=== PATIENT | female | born 1970 | race Two or more races ===

== ENCOUNTER → 2019-03-16 | Outpatient (CLI) | payer OTHER ==
--- NOTE | 2019-03-16 15:37 | REP ---
Lumbar spine series: Six views. History: Low back pain. Findings: Lumbar vertebral body heights are preserved. Alignment is normal. There is some straightening of the lumbar lordosis. There is degenerative narrowing at L5-S1 and to a lesser extent L4-5 disc spaces consistent with early degenerative disc disease. There is no evidence of spondylolysis or spondylolisthesis. Psoas margins are symmetric. There is a IUD noted in place in the pelvis. Impression: Mild degenerative disc disease L4-5 and L5-S1. Straightening. Otherwise negative. No acute bony abnormalities seen. IUD noted in place in the pelvis. Electronically Signed by Bal Chow MD 03/16/2019 04:44 P
== END ==
LOC: M LRY 14:31
PROVIDERS: ATTEND Nurse Practitioner Family
DX: M51.36 Other intervertebral disc degeneration, lumbar region (principal); M51.37 Other intervertebral disc degeneration, lumbosacral region
CPT/HCPCS: 72110; 81002; 96372; G0463; J1885

== ENCOUNTER → 2020-06-05 | Outpatient (CLI) | payer SELFPAY | LOC: M LABSMTC 12:32 | PROVIDERS: ATTEND Pediatrics | DX: Z20.828 Contact with and (suspected) exposure to other viral communicable diseases (principal) ==

== ENCOUNTER → 2020-06-19 | Outpatient (REF) ==
[2020-06-20 13:01] LABS: INR 0.94; PROTHROMBIN TIME 12.8 SECONDS (12.5-14.3)
[2020-06-20 13:02] LABS: PARTIAL THROMBOPLASTIN TIME 27.3 SECONDS (24.2-38.5)
== END ==
LOC: M LAB REF 12:32
PROVIDERS: ATTEND Podiatrist
DX: Z79.01 Long term (current) use of anticoagulants (principal)

== ENCOUNTER 2020-08-15 09:32 | Day surgery (SDC) | payer OTHER ==
[~2020-08-15] VITALS: Ht 170.2 cm; Wt 75.7 kg
[~2020-08-15 09:32] MED LIST: DULO1CAP5; LISI20TA35; NS 1,000 ML IV ONE; OMEP-221; PROM25TA12; TRAZ-257
--- OUTSIDE RECORDS SUMMARY | 2020-08-15 09:39 | CCD ---
Author Organization Unknown Address [address] [place] [address] Phone [phone] Care Team Providers Care Associate Software Engineer Name Role Phone [facility] 3 [phone] Allergies Code Code System Name Reaction Severity Status Onset NKDA Notes: unremarkable Medications Name Status Start Date Stop Date amlodipine 5 mg tablet Completed 0 bisacodyl 5 mg tablet,delayed release Completed 04/09/2020 Bismatrol 262 mg/15 mL oral suspension Completed 04/09/2020 celecoxib 100 mg capsule Active Not aishwarya ilable docusate sodium 100 mg capsule Active N ot available doxycycline hyclate 100 mg tablet Completed 04/09/2020 duloxetine 20 mg capsule,delayed release twice a day Completed 06/28/2020 duloxetine 30 mg capsule,delayed release Active Not available Elidel 1 % topical cream Completed 020 hydrocortisone 1 % topical cream Completed 04/09/2020 hydroquinone 4 % topical cream Completed 0 04/09/2020 lisinopril 20 mg-hydrochlorothiazide 12.5 mg tablet Active Not available Nicoderm CQ 14 mg/24 hr daily transdermal patch Completed 06/28/2020 Nicoderm CQ 21 mg/24 hr daily transdermal patch Active Not available nicotine 7 mg/24 hr daily transdermal patch Completed 06/28/2020 oxycodone-acetaminophen 5 mg-325 mg tablet Active Not available pantoprazole 40 mg tablet,delayed release Active Not available polyethylene glycol 3350 17 gram/dose oral powder Completed 04/09/2020 promethazine 25 mg tablet Active Not av ailable topiramate 50 mg tablet Active Not avai lable trazodone 100 mg tablet Completed 06/28/20 20 trazodone 50 mg tablet twice a day Active Not available Zanaflex 4 mg tablet Take 1 tablet 3 times a day by oral route as needed. Active Not available Problems None recorded. Procedures Date Name Performed by 06/21/2020 Foot/toes Surgery Procedure Notes: bunyon removal Information not available Extraction of [place] Tooth Information n ot available Section Information not avai lable Notes: Abdominal Plasty (2007) Results Lab Results None recorded. Past Encounters 06/28/2020 Lumbar Radiculopathy; Degeneration of Lumbar Intervertebral Disc; Degeneration of Lumbosacral Intervertebral Disc; Displacement of Lumbar Intervertebral Disc without Myelopathy; Intervertebral Disc Disorder; Spondylosis without Myelopathy; Lumbosacral Spondylosis without Myelopathy Julia Jim NP: [id number] [address], [facility] [place] [address], Ph. 06/11/2020 Lumbosacral Spondylosis without Myelopathy; Spondylosis without Myelopathy; Degeneration of Lumbar Intervertebral Disc; Degeneration of Lumbosacral Intervertebral Disc; Displacement of Lumbar Intervertebral Disc without Myelopathy; Intervertebral Disc Disorder; Lumbar Radiculopathy Abad Infante MD: [id number] [address], [place] [address], Ph. 05/23/2020 Lumbar Radiculopathy; Degeneration of Lumbar Intervertebral Disc; Degeneration of Lumbosacral Intervertebral Disc; Displacement of Lumbar Intervertebral Disc without Myelopathy; Intervertebral Disc Disorder; Spondylosis without Myelopathy; Lumbosacral Spondylosis without Myelopathy Abad Infante MD: [id number] [address], Ph. 05/09/2020 Lumbar Radiculopathy; Degeneration of Lumbar Intervertebral Disc; Degeneration of Lumbosacral Intervertebral Disc; Displacement of Lumbar Intervertebral Disc without Myelopathy; Intervertebral Disc Disorder; Spondylosis without Myelopathy; Lumbosacral Spondylosis without Myelopathy Abad Infante MD: [id number] [address], [facility] [place] [address], Ph. 04/26/2020 Lumbar Radiculopathy; Degeneration of Lumbar Intervertebral Disc; Degeneration of Lumbosacral Intervertebral Disc; Displacement of Lumbar Intervertebral Disc without Myelopathy; Intervertebral Disc Disorder; Spondylosis without Myelopathy; Lumbosacral Spondylosis without Myelopathy Abad Infante MD: [id number] [address], Ph. 04/18/2020 Lumbar Radiculopathy; Degeneration of Lumbar Intervertebral Disc; Degeneration of Lumbosacral Intervertebral Disc; Displacement of Lumbar Intervertebral Disc without Myelopathy; Intervertebral Disc Disorder; Spondylosis without Myelopathy; Lumbosacral Spondylosis without Myelopathy Abad Infante MD: [id number] [facility] [address], [place] [address], Ph. 04/09/2020 Lumbar Radiculopathy; Degeneration of Lumbar Intervertebral Disc; Degeneration of Lumbosacral Intervertebral Disc; Displacement of Lumbar Intervertebral Disc without Myelopathy; Intervertebral Disc Disorder; Spondylosis without Myelopathy; Lumbosacral Spondylosis without Myelopathy Abad Infante MD: [id number] [facility] [address], [facility] [place] [address], Ph. Social History Tobacco Smoking Status Former Smoker (07/23 PPD) Notes: last u sed Feb 2020 Vaccine List None recorded. Plan of Care Reminders Provider Appointments None recorded. Lab None recorded. Referral None recorded. Procedures None recorded. Surgeries None recorded. Imaging None recorded. Vitals 06/28/2020 09:30AM Telehealth Height 5 ft 7 in 04/09/2020 04:30PM NEW PATIENT Height Weight BMI Blood Pressure 5 ft 7 in 167 lbs 26.2 kg/m2 138/95 mm[Hg]
--- OUTSIDE RECORDS SUMMARY | 2020-08-15 09:39 | CCD ---
Continuity of Care Document (CCD) Created on: 07/05/2020 Serene Elias External Reference #: [id number] : [id number] Sex: Female Author Author Serene WOLFE DPM Organization Unknown Address [address] [place] [address] Phone [phone] Care Team Providers Care Access Rep Name Role Phone Usa Tyler Kaufman winnie AUTM Unavailable Problems Active Problems Provider Date Essential hypertension Zaid Juarez MD Onset: 02/23/2020 Social History Type Date Description Comments Sex Unknown ETOH Use Currently consumes alcohol Recreational Drug Use Denies Drug Use Tobacco Use Start: Unknown End: Unknown Patient is a former smoker Smoking Status Reviewed: 06/07/20 Patient is a former smoker Allergies, Adverse Reactions, Alerts Description No Known Drug Allergies Medications Active Medications SIG Qnty Indications Ordering Provide r Date Promethazine HCL 25mg Tablets take 1 tablet by mouth every 8 hours as needed for nausea and vomitting 20tabs Marty Wolfe DPM 06/12/2020 Colace 100mg Capsules take 1 tablet by mouth 2 times a day as needed for constipation 30caps Maureen Wolfe DPM 06/12/2020 Percocet 5-325mg Tablets take 1-2 tablets by mouth every 4-6 hours as needed for pain. do not drive, do not take before procedure. take with food. 30tabs Marty Wolfe DPM 05/21 Crutches Please dispense one pair of crutches and crutch training as necessary. Marty Wolfe DPM 06/12/[address] see preprocedure instructions 4tabs Zaid Juarez MD 03/02/2020 Mirena (52 MG) 20mcg/24HR IUD after insert remove after 5 yr Unknown Nicotine Transdermal System Step 3 7mg/24HR Patches 24HR apply patch and change daily Unknown Celebrex 100mg Capsules 1 cap by mouth daily as needed Unknown Duloxetine HCL 20mg Caps DR Part 1 by mouth every day Unknown Trazodone HCL 50mg Tablets 2 tabs by mouth daily at bedtime as needed Unknown Lisinopril 10mg Tablets 1 by mouth every day Unknown History Medications Miralax 17GM/Scoop Powder see preprocedure instructions. 238gm Zaid Juarez MD 03/02/2020 - Immunizations Description No Information Available Vital Signs Date Vital Result Comment 03/02/2020 1:26pm BP Systolic 124 mmHg BP Diastolic 85 mmHg Heart Rate 91 /min Body Temperature 98.1 F Respiratory Rate 18 /min O2 % BldC Oximetry 97 % Weight 181.00 lb Weight 82.102 kg Results Description No Information Available Procedures Date Code Description Status 07/05/2020 36433 No Chargeable Service Completed Medical Devices Description No Information Available Encounters Description No Information Available Assessments Date Code Description Provider 07/05/2020 Z47.89 Encounter for other orthopedic a ftercare Marty Wolfe, [facility] 06/07/2020 M21.612 Bunion of left foot Marty Wolfe, [facility] 06/07/2020 M19.072 Primary osteoarthritis, left ank le and foot Marty Wolfe, [facility] 03/02/2020 Z12.11 Encounter for screening for rachael gnant neoplasm of colon Zaid Juarez MD 03/02/2020 K58.2 Mixed irritable bowel syndrome L jimmy Juarez MD Plan of Treatment No Information Available Functional Status Description No Information Available Mental Status Description No Information Available Referrals Description No Information Available
--- OUTSIDE RECORDS SUMMARY | 2020-08-15 09:39 | CCD ---
Continuity of Care Document (CCD) Created on: 08/14/2020 Serene Elias External Reference #: [id number] : [id number] Sex: Female Author Author Serene PALAFOX M.D. Organization Unknown Address [address] [place] [address] Phone [phone] Care Team Providers Care Maintenance Team Member Name Role Phone Jessica BLACKMON Unavailable Problems Active Problems Provider Date Chronic low back pain Bere Lee M.D. Onset: 03/14/2020 Hand pain Bere Lee M.D. Onset: 02/28/2020 Numbness of hand Bere Lee M.D. Onset: 02/28/2020 Carpal tunnel syndrome Bere Lee M.D. Onset: 02/28/2020 Lumbosacral radiculopathy Bere Lee M.D. Onset: 020 Numbness of lower limb Bere Lee M.D. Onset: 03/14/2020 Chronic tension-type headache Payton Palafox M.D. Onset: Migraine without aura, not refractory Payton Palafox M.D. On set: 06/13/2020 Disorders of initiating and maintaining sleep Radha Ojeda Onset: 06/13/2020 Periodic limb movement disorder Payton Palafox M.D. Onset: 0 08/14/2020 Obstructive sleep apnea syndrome Payton Palafox M.D. Onset: 08/14/2020 Malaise and fatigue Payton Palafox M.D. Onset: 08/14/2020 Hypersomnia Payton Palafox M.D. Onset: 08/14/2020 Social History Type Date Description Comments Sex Unknown Tobacco Use Start: Unknown Patient has never smoked Allergies, Adverse Reactions, Alerts Description No Known Drug Allergies Medications Active Medications SIG Qnty Indications Ordering Provide r Date Topiramate 50mg Tablets half a tab po qhs for 1 week, then 1 po qhs for 1 week, & then 2 po qhs. 60tabs Payton Palafox M.D. 06/13/2020 Tylenol 8 Hour 650mg Tablets ER Bere Lee M.D. 03/14/2020 Tylenol 8 Hour 650mg Tablets ER Bere Lee M.D. 02/28/2020 Immunizations Description No Information Available Vital Signs Date Vital Result Comment 03/15/2020 9:14am BP Systolic 120 mmHg BP Diastolic 80 mmHg Heart Rate 72 /min Height 67 inches 5'7" Weight 169.00 lb BMI (Body Mass Index) 26.5 kg/m2 [place] Body Weight 135 lb Results Description No Information Available Procedures Date Code Description Status 08/07/2020 15790 EEG Recording Awake & Asleep Com pleted 08/07/2020 71147 EEG Recording Awake & Asleep Com pleted 06/29/2020 80988 MRI Brain W/O Contrast Completed 06/29/2020 37736 MRI Brain W/O Contrast Completed 03/15/2020 28186 Nerve Conduction 13+ Studies Com pleted 03/15/2020 28765 Needle Electromyography Complete , Five Or More Muscles Studied Completed 03/15/2020 96485 Needle Electromyography Complete , Five Or More Muscles Studied Completed 02/29/2020 46787 Nerve Conduction 13+ Studies Com pleted 02/29/2020 37559 Needle Electromyogra phy Non Extremity Done With Nerve Conduction Completed 02/29/2020 24304 Needle Electromyography Complete , Five Or More Muscles Studied Completed 02/29/2020 83102 Needle Electromyography Complete , Five Or More Muscles Studied Completed Medical Devices Description No Information Available Encounters Type Date Location Provider Dx Diagnosis Office Visit 08/14/2020 11:30a [place] G44.229 Chronic tension-type headache, not intractable G43.009 Migraine w/o aura, not intra ctable, w/o status migrainosus F51.01 Primary insomnia G47.61 Periodic limb movement disor crystal G47.33 Obstructive sleep apnea (meseret lt) (pediatric) R53.83 Other fatigue G47.14 Hypersomnia due to medical c ondition Office Visit 06/13/2020 8:00a Main office - Radha Palafox G44.229 Chronic tension-type headache, not intractable G43.009 Migraine w/o aura, not intra ctable, w/o status migrainosus F51.01 Primary insomnia M54.5 Low back pain Assessments Date Code Description Provider 08/14/2020 G44.229 Chronic tension-type headache, n ot intractable Payton Palafox M.D. 08/14/2020 G43.009 Migraine without aur a, not intractable, without status migrainosus Payton Palafox M.D. 08/14/2020 F51.01 Primary insomnia Jessica Ojeda 08/14/2020 G47.61 Periodic limb movement disorder Payton Palafox M.D. 08/14/2020 G47.33 Obstructive sleep apnea (adult) (pediatric) Payton Palafox M.D. 08/14/2020 R53.83 Other fatigue Payton Palafox M.D. 08/14/2020 G47.14 Hypersomnia due to medical condi tion Payton Palafox M.D. 08/07/2020 R25.8 Other abnormal involuntary movem ents Yanni Jesus, RadhaDRosalie 08/07/2020 R25.8 Other abnormal involuntary movem ents EEG 06/29/2020 G44.229 Chronic tension-type headache, n ot intractable Bere Jesus, Truman.DRosalie 06/29/2020 G44.229 Chronic tension-type headache, n ot intractable MRI 06/29/2020 G43.009 Migraine without aur a, not intractable, without status migrainosus Bere Jesus, M.DRosalie 06/29/2020 G43.009 Migraine without aur a, not intractable, without status migrainosus MRI 06/13/2020 G44.229 Chronic tension-type headache, n ot intractable Radha OjedaDRosalie 06/13/2020 G43.009 Migraine without aur a, not intractable, without status migrainosus Payton Palafox M.D. 06/13/2020 F51.01 Primary insomnia Jessica Ojeda 06/13/2020 M54.5 Low back pain Payton Palafox M.D. 03/15/2020 M54.5 Low back pain Bere Jesus, RadhaD Rosalie 03/15/2020 M54.16 Radiculopathy, lumbar region Abd ul Jesus, M.D. 03/15/2020 R20.2 Paresthesia of skin Bere Jesus, M.D. 03/15/2020 G60.9 Hereditary and idiopathic neurop athy, unspecified Bere Jesus, M.D. 02/29/2020 G56.03 Carpal tunnel syndrome, bilatera l upper limbs Bere Jesus, M.D. 02/29/2020 M54.2 Cervicalgia Bere Jesus, M.D . 02/29/2020 R20.2 Paresthesia of skin Bere Jesus, M.D. 02/29/2020 G56.02 Carpal tunnel syndrome, left upp er limb Bere Jesus, M.DRosalie Plan of Treatment No Information Available Functional Status Description No Information Available Mental Status Description No Information Available Referrals Refer to Reason for Referral Status Appt Date Payton Palafox M.D. Created [facility] [address] [place] [address] [phone] Payton Palafox M.D. Created [facility] [address] [place] [address] [phone] Bere Lee M.D. Created [facility] [address] [place] [address] [phone] Bere Lee M.D. Created [facility] [address] [place] [address] [phone]
--- OUTSIDE RECORDS SUMMARY | 2020-08-15 09:39 | CCD | Continuity of Care Document ---
Author Author Serene PALAFOX M.D. Organization Unknown Address [address] [place] [address] Phone [phone] Care Team Providers Care Table Hand Name Role Phone Morteza Morris AUTTruman Unavailable Jessica Bustos AUTTruman Unavailable Radha Morales M.D. AUTM [phone] Problems Active Problems Provider Date Chronic low [...] and maintaining sleep Radha Ojeda Onset: 06/13/2020 Social History Type Date Description Comments Sex [...] lb BMI (Body Mass Index) 26.5 kg/m2 [place] Body Weight 135 lb Results Description No Information Available Procedures Date Code Description Status 03/15/2020 93209 Nerve Conduction 13+ Studies Com pleted 03/15/2020 56035 Needle Electromyography Complete , Five Or More Muscles Studied Completed 03/15/2020 87581 Needle Electromyography Complete , Five Or More Muscles Studied Completed 02/29/2020 44945 Nerve Conduction 13+ Studies Com pleted 02/29/2020 98281 Needle Electromyogra phy Non Extremity Done With Nerve Conduction Completed 02/29/202016515 Needle Electromyography Complete , Five Or More Muscles Studied Completed 02/29/202076256 Needle Electromyography Complete , Five Or More Muscles Studied Completed Medical Devices Description No Information Available Encounters Type Date Location Provider Dx Diagnosis Office Visit 06/13/2020 8:00a Main office - [place] Radha Ojeda G44.229 Chronic tension-type headache, not intractable G43.009 Migraine w/o aura, not intra ctable, w/o status migrainosus F51.01 Primary insomnia M54.5 Low back pain Assessments Date Code Description Provider 06/13/2020 G44.229 Chronic tension-type headache, n ot intractable Payton Palafox M.D. 06/13/2020 G43.009 Migraine without aur a, not intractable, without status migrainosus Payton Palafox M.D. 06/13/2020 F51.01 Primary insomnia Jessica Ojeda 06/13/2020 M54.5 Low back pain Payton Palafox M.D. 03/15/2020 M54.5 Low back pain Bere JesusJessica morrow 03/15/2020 M54.16 Radiculopathy, lumbar region Abd ul Andrea Lee 03/15/2020 R20.2 Paresthesia of skin Bere Andrea Lee 03/15/2020 G60.9 Hereditary and idiopathic neurop athy, unspecified Bere Lee M.D. 02/29/2020 G56.03 Carpal tunnel syndrome, bilatera l upper limbs Bere Lee M.D. 02/29/2020 M54.2 Cervicalgia Jessica Jackson 02/29/2020 R20.2 Paresthesia of skin Bere Lee M.D. 02/29/2020 G56.02 Carpal tunnel syndrome, left upp er limb Bere Lee M.D. Plan of Treatment Future Appointment(s):* 08/14/2020 11:30 am - Payton Palafox M.D. at [facility] * 08/07/2020 2:30 pm - EEG at [facility] Functional Status Description No Information Available Mental Status Description No Information Available Referrals Refer to Dr Reason for Referral Status Appt Date Payton Palafox M.D. Created [facility] [address] [place] [address] [phone] Bere Lee M.D. Created [facility] [address] [place] [address] [phone] Bere Lee M.D. Created [facility] [address] [place] [address] [phone]
--- OUTSIDE RECORDS SUMMARY | 2020-08-15 09:39 | CCD ---
Author Organization Unknown Address [address] [place] [address] Phone [phone] Care Team Providers Care Power Saw Operator Name Role Phone [facility] 3 [phone] Allergies Code Code System Name Reaction Severity Status Onset NKDA Notes: unremarkable Medications Name Status Start Date Stop Date amlodipine 5 mg tablet Completed 0 bisacodyl 5 mg tablet,delayed release Completed 04/09/2020 Bismatrol 262 mg/15 mL oral suspension Completed 04/09/2020 celecoxib 100 mg capsule Active Not aishwarya ilable doxycycline hyclate 100 mg tablet Completed 04/09/2020 duloxetine 20 mg capsule,delayed release twice a day Active Not available duloxetine 30 mg capsule,delayed release Active Not available Elidel 1 % topical cream Completed 020 hydrocortisone 1 % topical cream Completed 04/09/2020 hydroquinone 4 % topical cream Completed 0 04/09/2020 lisinopril 20 mg-hydrochlorothiazide 12.5 mg tablet Active Not available Nicoderm CQ 14 mg/24 hr daily transdermal patch Completed 04/09/2020 Nicoderm CQ 21 mg/24 hr daily transdermal patch Completed 04/09/2020 nicotine 7 mg/24 hr daily transdermal patch Completed 04/09/2020 pantoprazole 40 mg tablet,delayed release Active Not available polyethylene glycol 3350 17 gram/dose oral powder Completed 04/09/2020 trazodone 100 mg tablet Active Not avai lable trazodone 50 mg tablet twice a day Active Not available Zanaflex 4 mg tablet Take 1 tablet 3 times a day by oral route as needed. Active Not available Problems None recorded. Procedures Date Name Performed by Extraction of [place] Tooth Information n ot available Section Information not avai veena Notes: Abdominal Plasty (2007) Results Lab Results None recorded. Past Encounters 06/11/2020 Lumbosacral Spondylosis without Myelopathy; Spondylosis without Myelopathy; Degeneration of Lumbar Intervertebral Disc; Degeneration of Lumbosacral Intervertebral Disc; Displacement of Lumbar Intervertebral Disc without Myelopathy; Intervertebral Disc Disorder; Lumbar Radiculopathy Abad Infante MD: [id number] [address], Ph. 05/23/2020 Lumbar Radiculopathy; Degeneration of Lumbar Intervertebral Disc; Degeneration of Lumbosacral Intervertebral Disc; Displacement of Lumbar Intervertebral Disc without Myelopathy; Intervertebral Disc Disorder; Spondylosis without Myelopathy; Lumbosacral Spondylosis without Myelopathy Abad Infante MD: [id number] [address], Ph. 05/09/2020 Lumbar Radiculopathy; Degeneration of Lumbar Intervertebral Disc; Degeneration of Lumbosacral Intervertebral Disc; Displacement of Lumbar Intervertebral Disc without Myelopathy; Intervertebral Disc Disorder; Spondylosis without Myelopathy; Lumbosacral Spondylosis without Myelopathy Abad Infante MD: [id number] [address], Ph. 04/26/2020 Lumbar Radiculopathy; Degeneration of Lumbar Intervertebral Disc; Degeneration of Lumbosacral Intervertebral Disc; Displacement of Lumbar Intervertebral Disc without Myelopathy; Intervertebral Disc Disorder; Spondylosis without Myelopathy; Lumbosacral Spondylosis without Myelopathy Abad Infante MD: [id number] [address], Ph. 04/18/2020 Lumbar Radiculopathy; Degeneration of Lumbar Intervertebral Disc; Degeneration of Lumbosacral Intervertebral Disc; Displacement of Lumbar Intervertebral Disc without Myelopathy; Intervertebral Disc Disorder; Spondylosis without Myelopathy; Lumbosacral Spondylosis without Myelopathy Abad Infante MD: [id number] [address], Ph. 04/09/2020 Lumbar Radiculopathy; Degeneration of Lumbar Intervertebral Disc; Degeneration of Lumbosacral Intervertebral Disc; Displacement of Lumbar Intervertebral Disc without Myelopathy; Intervertebral Disc Disorder; Spondylosis without Myelopathy; Lumbosacral Spondylosis without Myelopathy Abad Infante MD: [id number], [place] [address], Ph. Social History Tobacco Smoking Status Former Smoker (07/23 PPD) Notes: last u sed Feb 2020 Vaccine List None recorded. Plan of Care Reminders Provider Appointments None recorded. Lab None recorded. Referral None recorded. Procedures None recorded. Surgeries None recorded. Imaging None recorded. Vitals Height Weight BMI Blood Pressure 5 ft 7 in 167 lbs 26.2 kg/m2 138/95 mm[Hg]
--- OUTSIDE RECORDS SUMMARY | 2020-08-15 09:39 | CCD | Continuity of Care Document ---
Author Author Serene MEJIA M.D Organization Unknown Address [address] [place] [address] Phone [phone] Care Team Providers Care Custom Motorcycle Painter Name Role Phone Amish Dorman [facility] [phone] Problems Active Problems Provider Date Gastroesophageal reflux disease Zacarias Mejia M.D. Ons et: 08/02/2020 Social History Type Date Description Comments Sex Unknown ETOH Use Consumes 1-2 glasses of wine per day Tobacco Use Start: Unknown Patient has never smoked Allergies, Adverse Reactions, Alerts Description No Known Drug Allergies Medications Active Medications SIG Qnty Indications Ordering Provide r Date Omeprazole 40mg Capsules DR 1 cap by mouth every morning 90caps Zacarias Mejia M.D. 021 Zofran 4mg Tablets 1 tab by mouth every 4 hours as needed nausea 90tabs Zacarias Mejia M.D. 08/02/2020 Lisinopril-Hydrochlorothiazide 20-12.5mg Tablets Unknown Trazodone HCL 100mg Tablets Unknown Celecoxib 100mg Capsules Unknown Duloxetine HCL 30mg Caps DR Part Unknown Topiramate 50mg Tablets Payotn Palafox MD Immunizations Description No Information Available Vital Signs Date Vital Result Comment 08/02/2020 10:07am Height 67 inches 5'7" Weight 173.00 lb BP Systolic 123 mmHg BP Diastolic 81 mmHg Heart Rate 82 /min BMI (Body Mass Index) 27.1 kg/m2 Weight 78.473 kg Body Temperature 97.0 F Results Description No Information Available Procedures Description No Information Available Medical Devices Description No Information Available Encounters Description No Information Available Assessments Date Code Description Provider 08/02/2020 R12 Heartburn Zacarias nails M.D. Plan of Treatment Future Appointment(s):* 08/08/2020 7:15 am - David at Main Office * 08/15/2020 10:00 am - Zacarias Mejia M.D. at Main Office 08/02/2020 - Zacarias Mejia M.D.* R12 Heartburn* Comments:* 49 yo female ADS who presents for a h/o chronic heartburn/nausea/vomiting daily for 3 months. No c/o abdominal pain, weight loss, change in bowel habits, or r ectal bleeding. No family h/o colon cancer. No h/o chest pain, or sob. Plan:1. Egd + biopsies.2. Omeprazole 40 mgs po qd + Zofran for nausea/vomiting. Functional Status Description No Information Available Mental Status Description No Information Available Referrals Refer to Dr Reason for Referral Status Appt Date Zacarias Mejia M.D. Scheduled [address] [place] [address] [phone]
--- OUTSIDE RECORDS SUMMARY | 2020-08-15 09:39 | CCD | Continuity of Care Document ---
Author Author Serene QUAN Organization Unknown Address [address] [place] [address] Phone [phone] Care Team Providers Care Auto Glass Installer Name Role Phone Jessica BLACKMON Unavailable Problems [...] lb BMI (Body Mass Index) 26.5 kg/m2 [place] Body Weight 135 lb Results Description No Information Available Procedures Date Code Description Status 06/29/2020 07625 MRI Brain W/O Contrast Completed 06/29/2020 24733 MRI Brain W/O Contrast Completed 03/15/2020 92625 Nerve Conduction 13+ Studies Com pleted 03/15/2020 59021 Needle Electromyography Complete , Five Or More Muscles Studied Completed 03/15/2020 20841 Needle Electromyography Complete , Five Or More Muscles Studied Completed 02/29/2020 48654 Nerve Conduction 13+ Studies Com pleted 02/29/2020 43076 Needle Electromyogra phy Non Extremity Done With Nerve Conduction Completed 02/29/202092797 Needle Electromyography Complete , Five Or More Muscles Studied Completed 02/29/202002722 Needle Electromyography Complete , Five Or More Muscles Studied Completed Medical Devices Description No Information Available Encounters Type Date Location Provider Dx Diagnosis Office Visit 06/13/2020 8:00a Main office - [place] Radha Ojeda G44.229 Chronic tension-type headache, not intractable G43.009 Migraine w/o aura, not intra ctable, w/o status migrainosus F51.01 Primary insomnia M54.5 Low back pain Assessments Date Code Description Provider 06/29/2020 G44.229 Chronic tension-type headache, n ot intractable Bere Jesus, M.D. 06/29/2020 G44.229 Chronic tension-type headache, n ot intractable MRI 06/29/2020 G43.009 Migraine without aur a, not intractable, without status migrainosus Bere Jesus, M.D. 06/29/2020 G43.009 Migraine without aur a, not intractable, without status migrainosus MRI 06/13/2020 G44.229 Chronic tension-type headache, n ot intractable Payton Palafox M.D. 06/13/2020 G43.009 Migraine without aur a, not intractable, without status migrainosus Payton Palafox M.D. 06/13/2020 F51.01 Primary insomnia Jessica Ojeda 06/13/2020 M54.5 Low back pain Payton Palafox M.D. 03/15/2020 M54.5 Low back pain Bere Jesus, M.D . 03/15/2020 M54.16 Radiculopathy, lumbar region Abd ul [...] syndrome, left upp er limb Bere Jesus, RadhaDRosalie Plan of Treatment Future Appointment(s):* 08/14/2020 11:30 am - Payton Palafox M.D. at [facility] * 08/07/2020 2:30 pm - EEG at [facility] Functional Status Description No Information Available Mental Status Description No Information Available Referrals Refer to Dr Reason for Referral Status Appt Date Payton Palafox M.D. Created [facility] [address] [place] [address] [phone] Payton Palafox M.D. Created [facility] [address] [place] [address] [phone] Bere Lee M.D. Created [facility] [address] [place] [address] [phone] Bere Lee M.D. Created [facility] [address] [place] [address] [phone]
--- OUTSIDE RECORDS SUMMARY | 2020-08-15 09:39 | CCD | Continuity of Care Document ---
Author Author Serene FONTANEZ Organization Unknown Address [address] [place] [address] Phone [phone] Care Team Providers Care Literature Teacher Name Role Phone Jessica BLACKMON Unavailable Problems [...] lb BMI (Body Mass Index) 26.5 kg/m2 [place] Body Weight 135 lb Results Description No Information Available Procedures Date Code Description Status 06/29/2020 60582 MRI Brain W/O Contrast Completed 06/29/2020 97059 MRI Brain W/O Contrast Completed 03/15/2020 60194 Nerve Conduction 13+ Studies Com pleted 03/15/2020 94588 Needle Electromyography Complete , Five Or More Muscles Studied Completed 03/15/2020 08251 Needle Electromyography Complete , Five Or More Muscles Studied Completed 02/29/2020 25841 Nerve Conduction 13+ Studies Com pleted 02/29/2020 53429 Needle Electromyogra phy Non Extremity Done With Nerve Conduction Completed 02/29/202091977 Needle Electromyography Complete , Five Or More Muscles Studied Completed 02/29/202038887 Needle Electromyography Complete , Five Or More Muscles Studied Completed Medical Devices Description No Information Available Encounters Type Date Location Provider Dx Diagnosis Office Visit 06/13/2020 8:00a Main office - [place] Radha Ojeda G44.229 Chronic tension-type headache, not [...] M54.5 Low back pain Bere Jesus, M.D Rosalie 03/15/2020 M54.16 Radiculopathy, lumbar region Abd [...] tunnel syndrome, left upp er limb Bere Radha LeeDRosalie Plan of Treatment Future Appointment(s):* 08/14/2020 11:30 am - Payton Palafox M.D. at Main office [facility] Functional Status Description No Information Available Mental Status Description No Information Available Referrals Refer to Dr Reason for Referral Status Appt Date Payton Palafox M.D. Created [facility] [address] [place] [address] [phone] Payton Palafox M.D. Created [facility] [address] [place] [address] [phone] Bere Lee M.D. Created [facility] [address] [place] [address] [phone] Bere Lee M.D. Created [facility] [address] [place] [address] [phone]
--- OUTSIDE RECORDS SUMMARY | 2020-08-15 09:39 | CCD ---
Author Organization Unknown Address [address] [place] [address] Phone [phone] Care Team Providers Care Herpetology Teacher Name Role Phone [facility] 3 [phone] Allergies Code Code System Name Reaction [...] mg/24 hr daily transdermal patch Completed 06/28/2020 omeprazole 40 mg capsule,delayed release Active Not available ondansetron HCl 4 mg tablet Active Not available oxycodone-acetaminophen 5 mg-325 mg tablet Active Not [...] bunyon removal Information not available Extraction of Exira Tooth Information n ot available Section Information not avai lable Notes: Abdominal Plasty (2007) Results Lab Results None recorded. Past Encounters 08/06/2020 Lumbar Radiculopathy; Degeneration of Lumbar Intervertebral Disc; Degeneration of Lumbosacral Intervertebral Disc; Displacement of Lumbar Intervertebral Disc without Myelopathy; Intervertebral Disc Disorder; Spondylosis without Myelopathy; Lumbosacral Spondylosis without Myelopathy Julia Jim INTERMEDIATE FRAME TENDER: [id number] [facility], [facility] [place] [address], Ph. 07/23/2020 Lumbosacral Spondylosis without Myelopathy; Spondylosis without Myelopathy; Degeneration of Lumbar Intervertebral Disc; Degeneration of Lumbosacral Intervertebral Disc; Displacement of Lumbar Intervertebral Disc without Myelopathy; Intervertebral Disc Disorder; Lumbar Radiculopathy Abad Infante MD: [id number] [address], [facility] [place] [address], Ph. 06/28/2020 Lumbar Radiculopathy; Degeneration of Lumbar Intervertebral Disc; Degeneration of Lumbosacral Intervertebral Disc; Displacement of Lumbar Intervertebral Disc without Myelopathy; Intervertebral Disc Disorder; Spondylosis without Myelopathy; Lumbosacral Spondylosis without Myelopathy Julia Jim INTERMEDIATE FRAME TENDER: [id number] [address], [facility] [place] [address], Ph. 06/11/2020 Lumbosacral Spondylosis without Myelopathy; Spondylosis without Myelopathy; Degeneration of Lumbar Intervertebral Disc; Degeneration of Lumbosacral Intervertebral Disc; Displacement of Lumbar Intervertebral Disc without Myelopathy; Intervertebral Disc Disorder; Lumbar Radiculopathy Abad Infante MD: [id number] [facility] [address], [facility] [place] [address], Ph. 05/23/2020 Lumbar Radiculopathy; Degeneration of Lumbar Intervertebral Disc; Degeneration of Lumbosacral Intervertebral Disc; Displacement of Lumbar Intervertebral Disc without Myelopathy; Intervertebral Disc Disorder; Spondylosis without Myelopathy; Lumbosacral Spondylosis without Myelopathy Abad Infante MD: [id number] [address], [place] [address], Ph. 05/09/2020 Lumbar Radiculopathy; Degeneration of Lumbar Intervertebral Disc; Degeneration of Lumbosacral Intervertebral Disc; Displacement of Lumbar Intervertebral Disc without Myelopathy; Intervertebral Disc Disorder; Spondylosis without Myelopathy; Lumbosacral Spondylosis without Myelopathy Abad Infante MD: [id number] [address], Ph. 04/26/2020 Lumbar Radiculopathy; Degeneration of Lumbar Intervertebral Disc; Degeneration of Lumbosacral Intervertebral Disc; Displacement of Lumbar Intervertebral Disc without Myelopathy; Intervertebral Disc Disorder; Spondylosis without Myelopathy; Lumbosacral Spondylosis without Myelopathy Abad Infante MD: [id number] [address], Ph. 04/18/2020 Lumbar Radiculopathy; Degeneration of Lumbar Intervertebral Disc; Degeneration of Lumbosacral Intervertebral Disc; Displacement of Lumbar Intervertebral Disc without Myelopathy; Intervertebral Disc Disorder; Spondylosis without Myelopathy; Lumbosacral Spondylosis without Myelopathy Abad Infante MD: [id number] [address], Ph. 04/09/2020 Lumbar Radiculopathy; Degeneration of Lumbar Intervertebral Disc; Degeneration of Lumbosacral Intervertebral Disc; Displacement of Lumbar Intervertebral Disc without Myelopathy; Intervertebral Disc Disorder; Spondylosis without Myelopathy; Lumbosacral Spondylosis without Myelopathy Abad Infante MD: [id number] [address], Ph. Social History Tobacco Smoking Status Former Smoker (1/ PPD) Notes: last u sed Feb 2020 Vaccine List None recorded. Plan of Care Reminders Provider Appointments None recorded. Lab None recorded. Referral None recorded. Procedures None recorded. Surgeries None recorded. Imaging None recorded. Vitals 08/06/2020 04:00PM FOLLOW-UP Height Blood Pressure 5 ft 7 in 105/75 mm[Hg] 06/28/2020 09:30AM Telehealth Height 5 ft 7 in 04/09/2020 04:30PM NEW PATIENT Height Weight BMI Blood Pressure 5 ft 7 in 167 lbs 26.2 kg/m2 138/95 mm[Hg]
--- OUTSIDE RECORDS SUMMARY | 2020-08-15 09:39 | CCD | Continuity of Care Document ---
Author Author Serene QUAN Organization Unknown Address [address] [place] [address] Phone [phone] Care Team Providers Care Rn Sexual Assault Name Role Phone Jessica BLACKMON Unavailable Problems [...] lb BMI (Body Mass Index) 26.5 kg/m2 [place] Body Weight 135 lb Results Description No Information Available Procedures Date Code Description Status 03/15/2020 13066 Nerve Conduction 13+ Studies Com pleted 03/15/2020 10693 Needle Electromyography Complete , Five Or More Muscles Studied Completed 03/15/2020 71667 Needle Electromyography Complete , Five Or More Muscles Studied Completed 02/29/2020 64804 Nerve Conduction 13+ Studies Com pleted 02/29/2020 43824 Needle Electromyogra phy Non Extremity Done With Nerve Conduction Completed 02/29/2020 73481 Needle Electromyography Complete , Five Or More Muscles Studied Completed 02/29/2020 35909 Needle Electromyography Complete , Five Or More Muscles Studied Completed Medical Devices Description No Information Available Encounters Type Date Location Provider Dx Diagnosis Office Visit 06/13/2020 8:00a Main office - [place] Radha Ojeda G44.229 Chronic tension-type headache, not [...] 03/15/2020 M54.5 Low back pain Bere Jesus, Jessica Wiggins 03/15/2020 M54.16 Radiculopathy, lumbar region Abd ul Jesus, Andrea 03/15/2020 R20.2 Paresthesia of skin Bere Jesus, Andrea 03/15/2020 G60.9 Hereditary and idiopathic neurop athy, unspecified Bere Jesus, Andrea 02/29/2020 G56.03 Carpal tunnel syndrome, bilatera l upper limbs Bere Jesus, Andrea 02/29/2020 M54.2 Cervicalgia Jessica Jackson 02/29/2020 R20.2 Paresthesia of skin Bere Lee M.D. 02/29/2020 G56.02 Carpal tunnel syndrome, left upp er limb Bere Lee M.D. Plan of Treatment Future Appointment(s):* 08/14/2020 11:30 am - Payton Palafox M.D. at [facility] * 08/07/2020 2:30 pm - EEG at [facility] Functional Status Description No Information Available Mental Status Description No Information Available Referrals Refer to Dr Reason for Referral Status Appt Date Payton aPlafox M.D. Created [facility] [address] [place] [address] [phone] Bere Lee M.D. Created [facility] [address] [place] [address] [phone] Bere Lee M.D. Created [facility] [address] [place] [address] [phone]
--- OUTSIDE RECORDS SUMMARY | 2020-08-15 09:39 | CCD | Continuity of Care Document ---
Author Author Serene FONTANEZ Organization Unknown Address [address] [place] [address] Phone [phone] Care Team Providers Care Material Chaser Name Role Phone Jessica BLACKMON Unavailable Problems [...] lb BMI (Body Mass Index) 26.5 kg/m2 [place] Body Weight 135 lb Results Description No Information Available Procedures Date Code Description Status 08/07/2020 54735 EEG Recording Awake & Asleep Com pleted 08/07/2020 31476 EEG Recording Awake & Asleep Com pleted 06/29/2020 08421 MRI Brain W/O Contrast Completed 06/29/2020 70309 MRI Brain W/O Contrast Completed 03/15/2020 17884 Nerve Conduction 13+ Studies Com pleted 03/15/2020 96767 Needle Electromyography Complete , Five Or More Muscles Studied Completed 03/15/2020 06139 Needle Electromyography Complete , Five Or More Muscles Studied Completed 02/29/2020 46068 Nerve Conduction 13+ Studies Com pleted 02/29/2020 91874 Needle Electromyogra phy Non Extremity Done With Nerve Conduction Completed 02/29/2020 17048 Needle Electromyography Complete , Five Or More Muscles Studied Completed 02/29/2020 50672 Needle Electromyography Complete , Five Or More Muscles Studied Completed Medical Devices Description No Information Available Encounters Type Date Location Provider Dx Diagnosis Office Visit 06/13/2020 8:00a Main office - [place] Radha Ojeda G44.229 Chronic tension-type headache, not intractable G43.009 Migraine w/o aura, not intra ctable, w/o status migrainosus F51.01 Primary insomnia M54.5 Low back pain Assessments Date Code Description Provider 08/07/2020 R25.8 Other abnormal involuntary movem ents Yanni Lee M.D. 08/07/2020 R25.8 Other abnormal involuntary movem ents EEG 06/29/2020 G44.229 Chronic tension-type headache, n ot intractable Bere Lee M.D. 06/29/2020 G44.229 Chronic tension-type headache, n ot intractable MRI 06/29/2020 G43.009 Migraine without aur a, not intractable, without status migrainosus Bere Lee M.D. 06/29/2020 G43.009 Migraine without aur a, [...] M54.16 Radiculopathy, lumbar region Abd ul Jesus, M.DRosalie 03/15/2020 R20.2 Paresthesia of skin Bere Jesus, M.DRosalie 03/15/2020 G60.9 Hereditary and idiopathic neurop athy, unspecified Bere Jesus, M.DRosalie 02/29/2020 G56.03 Carpal tunnel syndrome, bilatera l upper limbs Bere Jesus, M.DRosalie 02/29/2020 M54.2 Cervicalgia Bere Jesus, M.D Rosalie 02/29/2020 R20.2 Paresthesia of skin Bere Jesus, M.DRosalie 02/29/2020 G56.02 Carpal tunnel syndrome, left upp er limb Bere Andrea Lee Plan of Treatment Future Appointment(s):* 08/14/2020 11:30 am - Payton Palafox M.D. at Main office [facility] Functional Status Description No Information Available Mental Status Description No Information Available Referrals Refer to Dr Reason for Referral Status Appt Date Payton Palafox M.D. Created [facility] [address] [place] [address] [phone] Payton Palafox M.D. Created [facility] [address] [place] [address] [phone] Bere Lee M.D. Created [facility] [address] [place] [address] [phone] Bere Lee M.D. Created [facility] [address] [place] [address] [phone]
--- OUTSIDE RECORDS SUMMARY | 2020-08-15 09:39 | CCD | Continuity of Care Document ---
Author Author Serene MEJIA M.D Organization Unknown Address [address] [place] [address] Phone [phone] Care Team Providers Care Broadband Installer Name Role Phone Amish Dorman [facility] [phone] Problems Active Problems Provider Date Gastroesophageal reflux [...] Caps DR Part Unknown Topiramate 50mg Tablets Payton Palafox MD Immunizations Description No Information Available [...] Date Location Provider Dx Diagnosis Office Visit 08/02/2020 9:30a Main Office Zacarias Mejia M.D. R 12 Heartburn Assessments Date Code Description Provider 08/02/2020 R12 [...] to Reason for Referral Status Appt Date Zacarias Mejia M.D. Scheduled [address] [place] [address] [phone]
--- OUTSIDE RECORDS SUMMARY | 2020-08-15 09:39 | CCD | Continuity of Care Document ---
Author Author Serene PALAFOX M.D. Organization Unknown Address [address] [place] [address] Phone [phone] Care Team Providers Care Engineering Drafter Name Role Phone Morteza Morris [employer] Unavailable Jessica Bustos [employer] Unavailable Radha Morales M.D. AUTM [phone] Problems Active Problems Provider Date Chronic low back pain Bere Lee M.D. Onset: 03/14/2020 Hand pain Bere Lee M.D. Onset: 02/28/2020 Numbness of hand Bere Lee M.D. Onset: 02/28/2020 Carpal tunnel syndrome Bere Lee M.D. Onset: 02/28/2020 Lumbosacral radiculopathy Bere Lee M.D. Onset: 020 Numbness of lower limb Bere Lee M.D. Onset: 03/14/2020 Disorders of initiating and maintaining sleep Radha Ojeda Onset: 06/13/2020 Migraine without aura, not refractory Payton Palafox M.D. On set: 06/13/2020 Chronic tension-type headache Payton Palafox M.D. Onset: Social History Type Date Description Comments Sex [...] lb BMI (Body Mass Index) 26.5 kg/m2 [place] Body Weight 135 lb Results Description No Information Available Procedures Date Code Description Status 03/15/2020 95830 Nerve Conduction 13+ Studies Com pleted 03/15/2020 24105 Needle Electromyography Complete , Five Or More Muscles Studied Completed 03/15/2020 62724 Needle Electromyography Complete , Five Or More Muscles Studied Completed 02/29/2020 82786 Nerve Conduction 13+ Studies Com pleted 02/29/2020 13207 Needle Electromyogra phy Non Extremity Done With Nerve Conduction Completed 02/29/202016004 Needle Electromyography Complete , Five Or More Muscles Studied Completed 02/29/202033571 Needle Electromyography Complete , Five Or More Muscles Studied Completed Medical Devices Description No Information Available Encounters Type Date Location Provider Dx Diagnosis Office Visit 06/13/2020 8:00a Main office - [place] Radha Ojeda G44.229 Chronic tension-type headache, not [...] limb Bere Lee M.D. Plan of Treatment No Information Available Functional Status Description No Information Available Mental Status Description No Information Available Referrals Refer to Reason for Referral Status Appt Date Bere Lee M.D. Created [facility] [address] [place] [address] [phone] Bere Lee M.D. Created [facility] [address] [place] [address] [phone]
--- OUTSIDE RECORDS SUMMARY | 2020-08-15 09:39 | CCD | Continuity of Care Document ---
Author Author Serene WOLFE DPM Organization Unknown Address [address] [place] [address] Phone [phone] Care Team Providers Care Paper Coating Supervisor Name Role Phone Usa Tyler Kaufman winnie [...] SIG Qnty Indications Ordering Provide r Date Dulcolax 5mg Tablets DR see preprocedure instructions [...] kg Results Description No Information Available Procedures Description No Information Available Medical Devices Description No Information Available Encounters Type Date Location Provider Dx Diagnosis Office Visit 06/07/2020 3:00p [facility] Podiatry Marty Wolfe DPM M21.612 Bunion of left foot M19.072 Primary osteoarthritis, left ankle and foot Assessments Date Code Description Provider 06/07/2020 M21.612 Bunion of left foot Marty Wolfe DPM 06/07/2020 M19.072 Primary osteoarthritis, left ank le and foot Marty Wolfe DPM 03/02/2020 Z12.11 Encounter for screening for rachael gnant neoplasm of colon Zaid Juarez MD 03/02/2020 K58.2 Mixed irritable bowel syndrome Nida Juarez MD Plan of Treatment 06/07/2020 - Marty Wolfe DPM* M21.612 Bunion of left foot* New Labs:* CBC W/Auto Differential, Ordered: 06/07/20 * PT/PTT, Ordered: 06/07/20 * Ua, Ordered: 06/07/20 * Follow up:* Patient was advised to follow up for her postoperative visits. * Recommendations:* 1. The patient was seen and evaluated. 2. She has a bunion primarily due to the enlarged prominence of the first metatarsal head and degenerative changes of the joint. She has attempted numerous conservative treatments and continues to get pain. She would like to have surgical correction. Consent form was signed. Risks and benefits were discussed, and patient will be scheduled to have a left foot modified Weiss bunionectomy tentatively on June 22. She will followup for her postoperative visits. * M19.072 Primary osteoarthritis, left ankle and foot Functional Status Description No Information Available Mental Status Description No Information Available Referrals Description No Information Available
--- OUTSIDE RECORDS SUMMARY | 2020-08-15 09:39 | CCD ---
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 Past Encounters 05/23/2020 Lumbar Radiculopathy; Degeneration of Lumbar Intervertebral Disc; Degeneration of Lumbosacral Intervertebral Disc; Displacement of Lumbar Intervertebral Disc without Myelopathy; Intervertebral Disc Disorder; Spondylosis without Myelopathy; Lumbosacral Spondylosis without Myelopathy Abad Infante MD: [id number] [address], Ph. 05/09/2020 Lumbar Radiculopathy; Degeneration of Lumbar Intervertebral Disc; Degeneration of Lumbosacral Intervertebral Disc; Displacement of Lumbar Intervertebral Disc without Myelopathy; Intervertebral Disc Disorder; Spondylosis without Myelopathy; Lumbosacral Spondylosis without Myelopathy Abad Infante MD: [id number] [address], Ph. 04/26/2020 Lumbar Radiculopathy; Degeneration of Lumbar Intervertebral Disc; Degeneration of Lumbosacral Intervertebral Disc; Displacement of Lumbar Intervertebral Disc without Myelopathy; Intervertebral Disc Disorder; Spondylosis without Myelopathy; Lumbosacral Spondylosis without Myelopathy Abad Infante MD: [id number] [address], Ph. 04/18/2020 Lumbar Radiculopathy; Degeneration of Lumbar Intervertebral Disc; Degeneration of Lumbosacral Intervertebral Disc; Displacement of Lumbar Intervertebral Disc without Myelopathy; Intervertebral Disc Disorder; Spondylosis without Myelopathy; Lumbosacral Spondylosis without Myelopathy Abad Infante MD: [id number] [address], Ph. 04/09/2020 Lumbar Radiculopathy; Degeneration of Lumbar Intervertebral Disc; Degeneration of Lumbosacral Intervertebral Disc; Displacement of Lumbar Intervertebral Disc without Myelopathy; Intervertebral Disc Disorder; Spondylosis without Myelopathy; Lumbosacral Spondylosis without Myelopathy Abad Infante MD: [id number] [address], Ph. Social History Tobacco Smoking Status Former [...]
--- OUTSIDE RECORDS SUMMARY | 2020-08-15 09:39 | CCD ---
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 Active Not available Problems None recorded. Procedures Date Name Performed by 06/21/2020 Foot/toes Surgery Procedure Notes: bunyon removal Information not available Extraction of [place] Tooth Information n ot available Section Information not avai lable Notes: Abdominal Plasty (2007) Results Lab Results None recorded. Past Encounters 07/23/2020 Lumbosacral Spondylosis without Myelopathy; Spondylosis without Myelopathy; Degeneration of Lumbar Intervertebral Disc; Degeneration of Lumbosacral Intervertebral Disc; Displacement of Lumbar Intervertebral Disc without Myelopathy; Intervertebral Disc Disorder; Lumbar Radiculopathy Abad Infante MD: [id number] [id number], [facility] [place] [address], Ph. 06/28/2020 Lumbar Radiculopathy; Degeneration of Lumbar Intervertebral Disc; Degeneration of Lumbosacral Intervertebral Disc; Displacement of Lumbar Intervertebral Disc without Myelopathy; Intervertebral Disc Disorder; Spondylosis without Myelopathy; Lumbosacral Spondylosis without Myelopathy Julia Jim NP: [id number] [id number], [facility] [place] [address], Ph. 06/11/2020 Lumbosacral Spondylosis without Myelopathy; Spondylosis without Myelopathy; Degeneration of Lumbar Intervertebral Disc; Degeneration of Lumbosacral Intervertebral Disc; Displacement of Lumbar Intervertebral Disc without Myelopathy; Intervertebral Disc Disorder; Lumbar Radiculopathy Abad Infante MD: [id number] [id number], [facility] [place] [address], Ph. 05/23/2020 Lumbar Radiculopathy; Degeneration of Lumbar Intervertebral Disc; Degeneration of Lumbosacral Intervertebral Disc; Displacement of Lumbar Intervertebral Disc without Myelopathy; Intervertebral Disc Disorder; Spondylosis without Myelopathy; Lumbosacral Spondylosis without Myelopathy Abad Infante MD: [id number] [id number], [facility] [place] [address], Ph. 05/09/2020 Lumbar Radiculopathy; Degeneration of Lumbar Intervertebral Disc; Degeneration of Lumbosacral Intervertebral Disc; Displacement of Lumbar Intervertebral Disc without Myelopathy; Intervertebral Disc Disorder; Spondylosis without Myelopathy; Lumbosacral Spondylosis without Myelopathy Abad Infante MD: [id number] [id number], [place] [address], Ph. 04/26/2020 Lumbar Radiculopathy; Degeneration of Lumbar Intervertebral Disc; Degeneration of Lumbosacral Intervertebral Disc; Displacement of Lumbar Intervertebral Disc without Myelopathy; Intervertebral Disc Disorder; Spondylosis without Myelopathy; Lumbosacral Spondylosis without Myelopathy Abad Infante MD: [id number] [id number], [facility] [place] [address], Ph. 04/18/2020 Lumbar Radiculopathy; Degeneration of Lumbar Intervertebral Disc; Degeneration of Lumbosacral Intervertebral Disc; Displacement of Lumbar Intervertebral Disc without Myelopathy; Intervertebral Disc Disorder; Spondylosis without Myelopathy; Lumbosacral Spondylosis without Myelopathy Abad Infante MD: [id number] [id number], [facility] [place] [address], Ph. 04/09/2020 Lumbar Radiculopathy; Degeneration of Lumbar Intervertebral Disc; Degeneration of Lumbosacral Intervertebral Disc; Displacement of Lumbar Intervertebral Disc without Myelopathy; Intervertebral Disc Disorder; Spondylosis without Myelopathy; Lumbosacral Spondylosis without Myelopathy Abad Infante MD: [id number] [id number], [facility] [place] [address], Ph. Social History Tobacco Smoking Status Former Smoker (/ PPD) Notes: last u sed Feb 2020 [...]
--- OUTSIDE RECORDS SUMMARY | 2020-08-15 09:40 | CCD ---
Author Author [facility] Organization [facility] Address Unknown Phone Unavailable Care Team Providers Care Supervisor Pipe Manufacture Name Role Phone Mayra Mejia MD Unavailable Unavailable Mayra Mejia MD Unavailable Unavailable Mayra Mejia MD Unavailable Unavailable Mayra Mejia MD Unavailable Unavailable Mayra Mejia MD Unavailable Unavailable Mayra Mejia MD Unavailable Unavailable Mayra Mejia MD Unavailable Unavailable Mayra Mejia MD Unavailable Unavailable Mayra Mejia MD Unavailable Unavailable Mayra Mejia MD Unavailable Unavailable Mayra Mejia MD Unavailable Unavailable Mayra Mejia MD Unavailable Unavailable Mayra Mejia MD Unavailable Unavailable Mayra Mejia MD Unavailable Unavailable Mayra Mejia MD Unavailable Unavailable Mayra Mejai MD Unavailable Unavailable Mayra Mejia MD Unavailable Unavailable Mayra Mejia MD Unavailable Unavailable Mayra Mejia MD Unavailable Unavailable Mayra Mejia MD Unavailable Unavailable Mayra Mejia MD Unavailable Unavailable Mayra Mejia MD Unavailable Unavailable Mayra Mejia MD Unavailable Unavailable Mayra Mejia MD Unavailable Unavailable Mayra Mejia MD Unavailable Unavailable Mayra Mejia MD Unavailable Unavailable Mayra Mejia MD Unavailable Unavailable Mayra Mejia MD Unavailable Unavailable Mayra Mejia MD Unavailable Unavailable Mayra Mejia MD Unavailable Unavailable Mayra Mejia MD Unavailable Unavailable Mayra Mejia MD Unavailable Unavailable Mayra Mejia MD Unavailable Unavailable Mayra Mejia MD Unavailable Unavailable Mayra Mejia MD Unavailable Unavailable Mayra Mejia MD Unavailable Unavailable Mayra Mejia MD Unavailable Unavailable Mayra Mejia MD Unavailable Unavailable Mayra Mejia MD Unavailable Unavailable Mayra Mejia MD Unavailable Unavailable Mayra Mejia MD Unavailable Unavailable Mayra Mejia MD Unavailable Unavailable Mayra Mejia MD Unavailable Unavailable Mayra Mejia MD Unavailable Unavailable Mayra Mejia MD Unavailable Unavailable Mayra Mejia MD Unavailable Unavailable Mayra Mejia MD Unavailable Unavailable Mayra Mejia MD Unavailable Unavailable Riccardo FORMAN MD Unavailable Unavailable Riccardo FORMAN MD Unavailable Unavailable Riccardo FORMAN MD Unavailable Unavailable Riccardo FORMAN MD Unavailable Unavailable Riccardo FORMAN MD Unavailable Unavailable Riccardo FORMAN MD Unavailable Unavailable Riccardo FORMAN MD Unavailable Unavailable Riccardo FORMAN MD Unavailable Unavailable Riccardo FORMAN MD Unavailable Unavailable Riccardo FORMAN MD Unavailable Unavailable Riccardo FORMAN MD Unavailable Unavailable Riccardo FORMAN MD Unavailable Unavailable Riccardo FORMAN MD Unavailable Unavailable Jumalon, M Julia VINYL WELDER AND FABRICATOR Unavailable Unavailable Jumalon, M Julia VINYL WELDER AND FABRICATOR Unavailable Unavailable Jumalon, M Julia VINYL WELDER AND FABRICATOR Unavailable Unavailable Jumalon, M Julia VINYL WELDER AND FABRICATOR Unavailable Unavailable Jumalon, M Julia VINYL WELDER AND FABRICATOR Unavailable Unavailable Jumalon, M Julia VINYL WELDER AND FABRICATOR Unavailable Unavailable Jumalon, M Julia VINYL WELDER AND FABRICATOR Unavailable Unavailable Jumalon, M Julia VINYL WELDER AND FABRICATOR Unavailable Unavailable Jumalon, M Julia VINYL WELDER AND FABRICATOR Unavailable Unavailable Jumalon, M Julia VINYL WELDER AND FABRICATOR Unavailable Unavailable Jumalon, M Julia VINYL WELDER AND FABRICATOR Unavailable Unavailable Jumalon, M Julia VINYL WELDER AND FABRICATOR Unavailable Unavailable Jumalon, M Julia VINYL WELDER AND FABRICATOR Unavailable Unavailable Jumalon, M Julia VINYL WELDER AND FABRICATOR Unavailable Unavailable Jumalon, M Julia VINYL WELDER AND FABRICATOR Unavailable Unavailable Jumalon, M Julia VINYL WELDER AND FABRICATOR Unavailable Unavailable Jumalon, M Julia VINYL WELDER AND FABRICATOR Unavailable Unavailable Jumalon, M Julia VINYL WELDER AND FABRICATOR Unavailable Unavailable Jumalon, M Julia VINYL WELDER AND FABRICATOR Unavailable Unavailable Jumalon, M Julia VINYL WELDER AND FABRICATOR Unavailable Unavailable Jumalon, M Julia VINYL WELDER AND FABRICATOR Unavailable Unavailable Jumalon, M Julia VINYL WELDER AND FABRICATOR Unavailable Unavailable Jumalon, M Julia VINYL WELDER AND FABRICATOR Unavailable Unavailable Jumalon, M Julia VINYL WELDER AND FABRICATOR Unavailable Unavailable Jumalon, M Julia VINYL WELDER AND FABRICATOR Unavailable Unavailable Jumalon, M Julia VINYL WELDER AND FABRICATOR Unavailable Unavailable Jumalon, M Julia VINYL WELDER AND FABRICATOR Unavailable Unavailable Fish, B Ryan FRANCIS Unavailable Unavailable Fish, B Ryan FRANCIS Unavailable Unavailable Fish, B Ryan FRANCIS Unavailable Unavailable Fish, B Ryan FRANCIS Unavailable Unavailable Fish, B Ryan FRANCIS Unavailable Unavailable Fish, B Ryan FRANCIS Unavailable Unavailable Fish, B Ryan FRANCIS Unavailable Unavailable Fish, B Ryan FRANCIS Unavailable Unavailable Fish, B Ryan FRANCIS Unavailable Unavailable Fish, B Ryan FRANCIS Unavailable Unavailable Fish, B Ryan FRANCIS Unavailable Unavailable Fish, B Ryan FRANCIS Unavailable Unavailable Fish, B Ryan FRANCIS Unavailable Unavailable Fish, B Ryan FRANCIS Unavailable Unavailable Fish, B Ryan FRANCIS Unavailable Unavailable Fish, B Ryan FRANCIS Unavailable Unavailable Fish, B Ryan FRANCIS Unavailable Unavailable Fish, B Ryan FRANCIS Unavailable Unavailable Fish, B Ryan FRANCIS Unavailable Unavailable Fish, B Ryan FRANCIS Unavailable Unavailable Fish, B Ryan FRANCIS Unavailable Unavailable Fish, B Ryan FRANCIS Unavailable Unavailable Fish, B Ryan FRANCIS Unavailable Unavailable Fish, B Ryan FRANCIS Unavailable Unavailable Fish, B Ryan FRANCIS Unavailable Unavailable Fish, B Ryan FRANCIS Unavailable Unavailable Fish, B Ryan FRANCIS Unavailable Unavailable Fish, B Ryan FRANCIS Unavailable Unavailable Fish, B Ryan FRANCIS Unavailable Unavailable Fish, B Ryan FRANCIS Unavailable Unavailable Fish, B Ryan FRANCIS Unavailable Unavailable Fish, B Ryan FRANCIS Unavailable Unavailable Fish, B Ryan FRANCIS Unavailable Unavailable Fish, B Ryan FRANCIS Unavailable Unavailable Fish, B Ryan FRANCIS Unavailable Unavailable Fish, B Ryan FRANCIS Unavailable Unavailable Fish, B Ryan FRANCIS Unavailable Unavailable Fish, Lulu Davis MD Unavailable Unavailable Fish, B Ryan FRANCIS Unavailable Unavailable Fish, B Ryan FRANCIS Unavailable Unavailable Fish, B Ryan FRANCIS Unavailable Unavailable Fish, B Ryan FRANCIS Unavailable Unavailable Fish, B Ryan FRANCIS Unavailable Unavailable Fish, B Ryan FRANCIS Unavailable Unavailable Fish, B Ryan FRANCIS Unavailable Unavailable Fish, B Ryan FRANCIS Unavailable Unavailable Fish, B Ryan FRANCIS Unavailable Unavailable Fish, B Ryan FRANCIS Unavailable Unavailable Fish, B Ryan FRANCIS Unavailable Unavailable Fish, B Ryan FRANCIS Unavailable Unavailable Fish, B Ryan FRANCIS Unavailable Unavailable Fish, B Ryan FRANCIS Unavailable Unavailable Fish, B Ryan FRANCIS Unavailable Unavailable Arrington, M Barratt PA Unavailable Unavailable Arrington, M Barratt PA Unavailable Unavailable Arrington, M Barratt PA Unavailable Unavailable Arrington, M Barratt PA Unavailable Unavailable Arrington, M Barratt PA Unavailable Unavailable Arrington, M Barratt PA Unavailable Unavailable Arrington, M Barratt PA Unavailable Unavailable Arrington, M Barratt PA Unavailable Unavailable Arrington, M Barratt PA Unavailable Unavailable Arrington, M Barratt PA Unavailable Unavailable Arrington, M Barratt PA Unavailable Unavailable Arrington, M Barratt PA Unavailable Unavailable Arrington, M Barratt PA Unavailable Unavailable Arrington, M Barratt PA Unavailable Unavailable Arrington, M Barratt PA Unavailable Unavailable Arrington, M Barratt PA Unavailable Unavailable Arrington, M Barratt PA Unavailable Unavailable Arrington, M Barratt PA Unavailable Unavailable Arrington, M Barratt PA Unavailable Unavailable Arrington, M Barratt PA Unavailable Unavailable Arrington, M Barratt PA Unavailable Unavailable Arrington, M Barratt PA Unavailable Unavailable Arrington, M Barratt PA Unavailable Unavailable Arrington, M Barratt PA Unavailable Unavailable Arrington, M Barratt PA Unavailable Unavailable Arrington, M Barratt PA Unavailable Unavailable Arrington, M Barratt PA Unavailable Unavailable FORNI, R TUAN DPM Unavailable Unavailable FORNI, R TUAN DPM Unavailable Unavailable FORNI, R TUAN DPM Unavailable Unavailable FORNI, R TUAN DPM Unavailable Unavailable FORNI, R TUAN DPM Unavailable Unavailable FORNI, R TUAN DPM Unavailable Unavailable FORNI, R TUAN DPM Unavailable Unavailable Mayra Infante MD Unavailable Unavailable Mayra Infante MD Unavailable Unavailable Mayra Infante MD Unavailable Unavailable Mayra Infante MD Unavailable Unavailable Mayra Infante MD Unavailable Unavailable Mayra Infante MD Unavailable Unavailable Mayra Infante MD Unavailable Unavailable Mayra Infante MD Unavailable Unavailable Mayra Infante MD Unavailable Unavailable Mayra Infante MD Unavailable Unavailable Mayra Infante MD Unavailable Unavailable Mayra Infante MD Unavailable Unavailable Mayra Infante MD Unavailable Unavailable Mayra Infante MD Unavailable Unavailable Mayra Infante MD Unavailable Unavailable Mayra Infante MD Unavailable Unavailable Mayra Infante MD Unavailable Unavailable Mayra Infante MD Unavailable Unavailable Mayra Infante MD Unavailable Unavailable Bolgermaine S Abad FRANCIS Unavailable Unavailable Bolgermaine S Abad FRANCIS Unavailable Unavailable Bolla S Abad FRANCIS Unavailable Unavailable Bolgermaine S Abad FRANCIS Unavailable Unavailable Bolla S Abad MD Unavailable Unavailable Bolgermaine S Abad MD Unavailable Unavailable Bolla S Abad MD Unavailable Unavailable Bolgermaine S Abad MD Unavailable Unavailable Bolla, S Abad MD Unavailable Unavailable Bolgermaine S Abad MD Unavailable Unavailable Bolla S Abad MD Unavailable Unavailable Bolla S Abad MD Unavailable Unavailable Bolla S Abad MD Unavailable Unavailable Bolla S Abad MD Unavailable Unavailable Bolla S Abad MD Unavailable Unavailable Bolgermaine S Abad MD Unavailable Unavailable Bolla S Abad MD Unavailable Unavailable Bolgermaine S Abad MD Unavailable Unavailable Bolgermaine S Abad MD Unavailable Unavailable Bolgermaine S Abad MD Unavailable Unavailable Bolgermaine S Abad MD Unavailable Unavailable Bolgermaine S Abad MD Unavailable Unavailable Bolgermaine S Abad MD Unavailable Unavailable Bolgermaine S Abad MD Unavailable Unavailable Bolgermaine S Abad MD Unavailable Unavailable Bolgermaine S Abad MD Unavailable Unavailable Bolgermaine S Abad MD Unavailable Unavailable Bolgermaine S Abad MD Unavailable Unavailable Naresh S Abad FRANCIS Unavailable Unavailable Payton Palafox MD Unavailable Unavailable Payton Palafox MD Unavailable Unavailable Payton Palafox MD Unavailable Unavailable Payton Palafox MD Unavailable Unavailable Payton Palafox MD Unavailable Unavailable Payton Palafox MD Unavailable Unavailable Payton Palafox MD Unavailable Unavailable Payton Palafox MD Unavailable Unavailable Payton Palafox MD Unavailable Unavailable Payton Palafox MD Unavailable Unavailable Payton Palafox MD Unavailable Unavailable Payton Palafox MD Unavailable Unavailable Payton Palafox MD Unavailable Unavailable Payton Palafox MD Unavailable Unavailable Payton Palafox MD Unavailable Unavailable Payton Palafox MD Unavailable Unavailable Payton Palafox MD Unavailable Unavailable Payton Palafox MD Unavailable Unavailable Payton Palafox MD Unavailable Unavailable Payton Palafox MD Unavailable Unavailable Payton Palafox MD Unavailable Unavailable Payton Palafox MD Unavailable Unavailable Payton Palafox MD Unavailable Unavailable Payton Palafox MD Unavailable Unavailable Payton Palafox MD Unavailable Unavailable Payton Palafox MD Unavailable Unavailable Payton Palafox MD Unavailable Unavailable Payton Palafox MD Unavailable Unavailable Payton Palafox MD Unavailable Unavailable Ali, Payton MD Unavailable Unavailable Ali, Payton MD Unavailable Unavailable Ali, Payton MD Unavailable Unavailable Ali, Payton MD Unavailable Unavailable Ali, Payton MD Unavailable Unavailable Ali, Payton MD Unavailable Unavailable Ali, Payton MD Unavailable Unavailable Ali, Payton MD Unavailable Unavailable Ali, Payton MD Unavailable Unavailable Ali, Payton MD Unavailable Unavailable Ali, Payton MD Unavailable Unavailable Ali, Payton MD Unavailable Unavailable Ali, Payton MD Unavailable Unavailable Ali, Payton MD Unavailable Unavailable Ali, Payton MD Unavailable Unavailable Ali, Payton MD Unavailable Unavailable Ali, Payton MD Unavailable Unavailable Ali, Payton MD Unavailable Unavailable Ali, Payton MD Unavailable Unavailable Ali, Payton MD Unavailable Unavailable ZULICK, C HORACIO MD Unavailable Unavailable ZULICK, C HORACIO MD Unavailable Unavailable ZULICK, C HORACIO MD Unavailable Unavailable ZULICK, C HORACIO MD Unavailable Unavailable ZULICK, C HORACIO MD Unavailable Unavailable ZULICK, C HORACIO MD Unavailable Unavailable ZULICK, C HORACIO MD Unavailable Unavailable ZULICK, C HORACIO MD Unavailable Unavailable ZULICK, C HORACIO MD Unavailable Unavailable ZULICK, C HORACIO MD Unavailable Unavailable ZULICK, C HORACIO MD Unavailable Unavailable ZULICK, C HORACIO MD Unavailable Unavailable ZULICK, C HORACIO MD Unavailable Unavailable FORNI, R TUAN DPM Unavailable Unavailable FORNI, R UTAN DPM Unavailable Unavailable FORNI, R TUAN DPM Unavailable Unavailable FORNI, R TUAN DPM Unavailable Unavailable FORNI, R TUAN DPM Unavailable Unavailable FORNI, R TUAN DPM Unavailable Unavailable FORNI, R TUAN DPM Unavailable Unavailable Re-disclosure Warning The records that you are about to access may contain information from federally-assisted alcohol or drug abuse programs. If such information is present, then the following federally mandated warning applies: This information has been disclosed to you from records protected by federal confidentiality rules (42 CFR part 2). The federal rules prohibit you from making any further disclosure of this information unless further disclosure is expressly permitted by the written consent of the person to whom it pertains or as otherwise permitted by 42 CFR part 2. A general authorization for the release of medical or other information is NOT sufficient for this purpose. The Federal rules restrict any use of the information to criminally investigate or prosecute any alcohol or drug abuse patient.The records that you are about to access may contain highly sensitive health information, the redisclosure of which is protected by Article 27-F of the [facility] Public Health law. If you continue you may have access to information: Regarding HIV / AIDS; Provided by facilities licensed or operated by the [facility] Office of Mental Health; or Provided by the [facility] Office for People With Developmental Disabilities. If such information is present, then the following [facility] mandated warning applies: This information has been disclosed to you from confidential records which are protected by state law. State law prohibits you from making any further disclosure of this information without the specific written consent of the person to whom it pertains, or as otherwise permitted by law. Any unauthorized further disclosure in violation of state law may result in a fine or snf sentence or both. A general authorization for the release of medical or other information is NOT sufficient authorization for further disc losure. Allergies and Adverse Reactions Type Description Substance Reaction Status Data Source(s ) No Known Drug Allergies No Known Drug Allergies [facility] No Known Environmental Allergies No Known Environmental Al lergies [facility] No Known Food Allergies No Known Food Allergies [facility] Encounters Encounter Providers Location Date Indications Data Source(s ) Outpatient Attender: Payton Palafox MD Main office - [place] 08/14/2020 10:30:00 AM EST [facility] ([facility]) Recurring Patient Referrer: Julia NEGRON 08/10/2020 09:16:57 AM EST [facility] Recurring Patient Referrer: Julia PERDOMOP 08/07/2020 01:33:32 PM EST [facility] Julia Jim NP: [id number] [facility] [address], [place] [address], Ph. [facility]: [facility] - Main Office 08/06/2020 12:00:00 AM EST [facility] ([facility]) Outpatient Attender: Zacarias Mejia MD Main Office 08/02/2020 08:30:00 AM EST [facility] ([facility]) Abad Infante MD: [id number] [facility] [address], [place] [address], Ph. Attender: Abad Infante MD [place] - [facility] 07/23/2020 12:00:00 AM EST [facility] ([facility]) Abad Infante MD: [id number], [place] [address], Ph. Attender: Abad Infante MD [place] - [facility] 07/23/2020 12:00:00 AM EST [facility] ([facility]) Outpatient Attender: TUAN WOLFE DPM 2019 10:06:00 AM EST - 07/05/2020 10:06:00 AM EST [facility], DIRECTOR OF MEDIA: [id number], [place] [address], Ph. Attender: Julia Jim [facility] 06/28/2020 12:00:00 AM EST [facility] NA ([facility]) Julia [facility], DIRECTOR OF MEDIA: [id number], [place] [address], Ph. Attender: Julia Jim [facility] 06/28/2020 12:00:00 AM EST [facility] NA ([facility]) [facility], DIRECTOR OF MEDIA: [id number], [place] [address], Ph. Attender: Julia Jim [facility] 06/28/2020 12:00:00 AM EST [facility] ([facility]) Outpatient Attender: TUAN WOLFE DPM 2019 06:30:00 AM EST - 06/21/2020 09:17:00 AM EST [facility] Patient discharged. Outpatient Attender: TUAN WOLFE DPM 2019 07:45:26 AM EST - 06/19/2020 04:30:00 PM EST [facility] Patient discharged. Outpatient Attender: Payton Palafox MD Main office - [place] 06/13/2020 07:00:00 AM EST [facility] ([facility]) Abad Infante MD: [id number], [address], [place] [address], Ph. Attender: Abad Infante MD [place] - [facility] 06/11/2020 12:00:00 AM EST [facility] ([facility]) Abad Infante MD: [id number], [place] [address], Ph. Attender: Abad Infante MD [place] - [facility] 06/11/2020 12:00:00 AM EST [facility] ([facility]) Abad Infante MD: [id number], [place] [address], Ph. Attender: Abad Infante MD [place] - [facility] 06/11/2020 12:00:00 AM EST [facility] ([facility]) Abad Infante MD: [id number], [place] [address], Ph. Attender: Abad Infante MD [facility] 06/11/2020 12:00:00 AM EST [facility] ([facility]) Outpatient Attender: TUAN WOLFE DPM 2019 02:55:00 PM EST - 06/07/2020 02:55:00 PM EST [facility] Outpatient Attender: TUAN WOLFE DPM [facility] 06/07/2020 0 2:00:00 PM EST [facility] ([facility]ics) Abad Infante MD: [id number], [place] [address], Ph. Attender: Abad Infante MD [place] - [facility] 05/23/2020 12:00:00 AM EST [facility] ([facility]) Abad Infante MD: [id number], [address], [place] [address], Ph. Attender: Abad ADAMS - [facility] 05/23/2020 12:00:00 AM EST [facility] ([facility]) Abad Infante MD: [id number], [address], [place] [address], Ph. Attender: Abad ADAMS - [facility] 05/23/2020 12:00:00 AM EST [facility] ([facility]) Abad Infante MD: [id number], [address], [place] [address], Ph. Attender: Abad ADAMS - [facility] 05/23/2020 12:00:00 AM EST [facility] ([facility]) Abad Infante MD: [id number], [address], [place] [address], Ph. Attender: Abad ADAMS - [facility] 05/23/2020 12:00:00 AM EST [facility] ([facility]) Abad Infante MD: [id number], [address], [place] [address], Ph. Attender: Abad ADAMS - [facility] 05/09/2020 12:00:00 AM EDT [facility] ([facility]) Abad Infante MD: [id number], [address], [place] [address], Ph. Attender: Abad ADAMS - [facility] 05/09/2020 12:00:00 AM EDT [facility] ([facility]) Abad Infante MD: [id number], [address], [place] [address], Ph. Attender: Abad ADAMS - [facility] 05/09/2020 12:00:00 AM EDT [facility] ([facility]) Abad Infante MD: [address], [address], [place] [address], Ph. Attender: Abad ADAMS - [facility] 05/09/2020 12:00:00 AM EDT [facility] ([facility]) Abad Infante MD: [address], [address], [place] [address], Ph. Attender: Abad ADAMS - [facility] 05/09/2020 12:00:00 AM EDT [facility] ([facility]) Abad Infante MD: [id number], [address], [place] [address], Ph. Attender: Abad ADAMS - [facility] 05/09/2020 12:00:00 AM EDT [facility] ([facility]) Abad Infante MD: [address], [address], [place] [address], Ph. Attender: Abad ADAMS - [facility] 04/26/2020 12:00:00 AM EDT [facility] ([facility]) Abad Infante MD: [id number], [address], [place] [address], Ph. Attender: Abad ADAMS - [facility] 04/26/2020 12:00:00 AM EDT [facility] ([facility]) Abad Infante MD: [id number], [place] [address], Ph. Attender: Abad ADAMS - [facility] 04/26/2020 12:00:00 AM EDT [facility] ([facility]) Abad Infante MD: [id number], [address], [place] [address], Ph. Attender: Abad ADAMS - [facility] 04/26/2020 12:00:00 AM EDT [facility] ([facility]) Abad Infante MD: [id number], [place] [address], Ph. Attender: Abad ADAMS - [facility] 04/26/2020 12:00:00 AM EDT [facility] ([facility]) Abad Infante MD: [address], [place] [address], Ph. Attender: Abad ADAMS - [facility] 04/26/2020 12:00:00 AM EDT [facility] ([facility]) Abad Infante MD: [id number], [place] [address], Ph. Attender: Abad ADAMS - [facility] 04/26/2020 12:00:00 AM EDT [facility] ([facility]) Office Visit Attender: Conor WIGGINS Physical Therapy 02:30:00 PM EDT [facility] ([facility]) Abad Infante MD: [id number] [address] [address], [place] [address], Ph. Attender: Abad Infante MD [place] [facility] 04/18/2020 12:00:00 AM EDT [facility] ([facility]) Abad Infante MD: [id number], [address], [place] [address], Ph. Attender: Abad Infante MD [place] - [facility] 04/18/2020 12:00:00 AM EDT [facility] ([facility]) Abad Infante MD: [id number], [address], [place] [address], Ph. Attender: Abad Infante MD [place] - [facility] 04/18/2020 12:00:00 AM EDT [facility] ([facility]) Abad Infante MD: [id number], [address], [place] [address], Ph. Attender: Abad Infante MD [place] - [facility] 04/18/2020 12:00:00 AM EDT [facility] ([facility]) Abad Infante MD: [id number], [address], [place] [address], Ph. Attender: Abad ADAMS - [facility] 04/18/2020 12:00:00 AM EDT [facility] ([facility]) Abad Infante MD: [id number], [address], [place] [address], Ph. Attender: Abad Infante MD [place] - [facility] 04/18/2020 12:00:00 AM EDT [facility] ([facility]) Abad Infante MD: [id number], [address], [place] [address], Ph. Attender: Abad Infante MD [place] - [facility] 04/18/2020 12:00:00 AM EDT [facility] ([facility]) Abad Infante MD: [id number], [place] [address], Ph. Attender: Abad Infante MD [place] - [facility] 04/18/2020 12:00:00 AM EDT [facility] ([facility]) Office Visit Attender: Conor WIGGINS Physical Therapy 01:15:00 PM EDT [facility] ([facility]) Abad Infante MD: [id number], [place] [address], Ph. Attender: Abad ADAMS - [facility] 04/09/2020 12:00:00 AM EDT [facility] ([facility]) Abad Infante MD: [id number], [place] [address], Ph. Attender: Abad ADAMS - [facility] 04/09/2020 12:00:00 AM EDT [facility] ([facility]) Abad Infante MD: [id number], [place] [address], Ph. Attender: Abad Infante MD [place] - [facility] 04/09/2020 12:00:00 AM EDT [facility] ([facility]) Abad Infante MD: [id number], [place] [address], Ph. Attender: Abad ADAMS - [facility] 04/09/2020 12:00:00 AM EDT [facility] ([facility]) Abad Infante MD: [id number], [address], [place] [address], Ph. Attender: Abad Infante MD [place] - [facility] 04/09/2020 12:00:00 AM EDT [facility] ([facility]) Abad Infante MD: [id number] [address], [address], [place] [address], Ph. Attender: Abad ADAMS - [facility] 04/09/2020 12:00:00 AM EDT [facility] ([facility]) Abad Infante MD: [id number], [address], [place] [address], Ph. Attender: Abad ADAMS - [facility] 04/09/2020 12:00:00 AM EDT [facility] ([facility]) Abad Infante MD: [id number], [address], [place] [address], Ph. Attender: Abad ADAMS - [facility] 04/09/2020 12:00:00 AM EDT [facility] ([facility]) Abad Infante MD: [id number], [address], [place] [address], Ph. Attender: Abad ADAMS - [facility] 04/09/2020 12:00:00 AM EDT [facility] ([facility]) Office Visit Attender: Conor WIGGINS Physical Therapy 02:45:00 PM EDT [facility] ([facility]) Outpatient Attender: Conor WIGGINS Physical Therapy 02:15:00 PM EDT [facility] ([facility]) Outpatient Attender: HORACIO FORMAN MD 2019 08:00:00 AM EDT - 03/20/2020 10:54:00 AM EDT [facility] Patient discharged. OFFICE OUTPATIENT NEW 30 MINUTES Attender: Ryan Aguirre MD Physic al Therapy 03/14/2020 09:00:00 AM EDT [facility] ([facility]) Outpatient Attender: HORACIO FORMAN MD 2019 06:49:10 AM EDT - 03/15/2020 12:31:00 PM EDT [facility] Patient discharged. Outpatient Attender: HORACIO FORMAN MD 2019 01:20:00 PM EDT - 03/02/2020 01:20:00 PM EDT [facility] Outpatient Attender: HORACIO FORMAN MD Family Practice 03/02/2020 0 1:15:00 PM EDT [facility] ([facility]) Medications Medication Brand Name Start Date Product Form Dose Route Admi nistrative Instructions Pharmacy Instructions Status Indications Reaction Description Data Source(s) Omeprazole 40 MG Delayed Release Oral Capsule Omeprazole 08/02/2020 12:00:00 AM EST ORAL active [facility] ([facility]) Ondansetron 4 MG Oral Tablet [Zofran] Zofran 08/02/2020 12:00:00 AM EST ORAL active [facility] ([facility]) topiramate 50 MG Oral Tablet Topiramate 06/13/2020 12:00:00 AM EST active [facility] ([facility]) Crutches 06/12/2020 12:00:00 AM EST active [facility] ([facility]) Acetaminophen 325 MG / Oxycodone Hydrochloride 5 MG Or al Tablet [Percocet] Percocet 06/12/2020 12:00:00 AM EST ORAL active [facility] ([facility]) Docusate Sodium 100 MG Oral Capsule [Colace] Colace 12:00:00 AM EST ORAL active [facility] ( [facility]) Promethazine Hydrochloride 25 MG Oral Tablet Promethazine HC L 06/12/2020 12:00:00 AM EST ORAL active M EDENT ([facility]) 2 ML Sodium Hyaluronate 10 MG/ML Prefilled Syringe [Euflexxa ] Euflexxa 04/06/2020 12:00:00 AM EDT active [facility] ([facility] ) 8 HR Acetaminophen 650 MG Extended Release Oral Tablet [Tyle nol] Tylenol 8 Hour 03/14/2020 12:00:00 AM EDT active [facility] ([facility] ) Bisacodyl 5 MG Delayed Release Oral Tablet [Dulcolax] Dulcol ax 03/02/2020 12:00:00 AM EDT active M [facility]ENT ([facility]) POLYETHYLENE GLYCOL 3350 142 MG/ML Oral Solution [Miralax] M iralax 03/02/2020 12:00:00 AM EDT completed [facility] ([facility]) 8 HR Acetaminophen 650 MG Extended Release Oral Tablet [Tyle nol] Tylenol 8 Hour 02/28/2020 12:00:00 AM EDT active [facility] ([facility] ) 24 HR Nicotine 0.875 MG/HR Transdermal P atch [Nicoderm C-Q] Nicoderm CQ 21 mg/24 hr daily transdermal patch Nicoderm CQ 21 mg/24 hr daily transdermal patch completed 24 HR tamiko fredy 0.875 MG/HR Transdermal System [Nicoderm C-Q] [facility] ([facility]) 24 HR Nicotine 0.583 MG/HR Transdermal P atch [Nicoderm C-Q] Nicoderm CQ 14 mg/24 hr daily transdermal patch Nicoderm CQ 14 mg/24 hr daily transdermal patch completed 24 HR tamiko fredy 0.583 MG/HR Transdermal System [Nicoderm C-Q] [facility] ([facility]) Pimecrolimus 10 MG/ML Topical Cream [Elidel] Elidel 1 % topical cream Elidel 1 % topical cream completed pimecrolimus 10 MG/ML Topical Cream [Elidel] [facility] ([facility]) bismuth subsalicylate 17.5 MG/ML Oral Godinez spension Bismatrol 262 mg/15 mL oral suspension Bismatrol 262 mg/15 mL oral suspension completed bismuth subsalicylate 17.5 MG/ML Oral Suspension [facility] ([facility]) Pimecrolimus 10 MG/ML Topical Cream [Elidel] Elidel 1 % topical cream Elidel 1 % topical cream completed pimecrolimus 10 MG/ML Topical Cream [Elidel] [facility] ([facility]) doxycycline hyclate 100 MG Oral Tablet doxycycline hyc late 100 mg tablet doxycycline hyclate 100 mg tablet comp leted doxycycline hyclate 100 MG Oral Tablet [facility] ([facility]) Bisacodyl 5 MG Delayed Release Oral Tabl et bisacodyl 5 mg tablet,delayed release bisacodyl 5 mg tablet,delayed release completed bisacodyl 5 MG Delayed Release Oral Tablet [facility] ([facility]) Pimecrolimus 10 MG/ML Topical Cream [Elidel] Elidel 1 % topical cream Elidel 1 % topical cream completed pimecrolimus 10 MG/ML Topical Cream [Elidel] [facility] ([facility]) 24 HR Nicotine 0.292 MG/HR Transdermal P atch nicotine 7 mg/24 hr daily transdermal patch nicotine 7 mg/24 hr daily transdermal patch completed 24 HR nicotine 0.292 MG/HR Trans dermal System [facility] ([facility]) Amlodipine 5 MG Oral Tablet amlodipine 5 mg tablet amlodipine 5 mg ta blet completed amlodipine 5 MG Oral Tablet [facility] ([facility]) POLYETHYLENE GLYCOL 3350 142 MG/ML Oral Solution polyethylene glycol 3350 17 gram/dose oral powder polyethylene glycol 3350 17 gram/dose oral powder completed polyethylene glycol 3350 19570 MG Powder for Oral Solution [facility] ([facility]) POLYETHYLENE GLYCOL 3350 142 MG/ML Oral Solution polyethylene glycol 3350 17 gram/dose oral powder polyethylene glycol 3350 17 gram/dose oral powder completed polyethylene glycol 3350 08208 MG Powder for Oral Solution [facility] ([facility]) Bisacodyl 5 MG Delayed Release Oral Tabl et bisacodyl 5 mg tablet,delayed release bisacodyl 5 mg tablet,delayed release completed bisacodyl 5 MG Delayed Release Oral Tablet [facility] ([facility]) 24 HR Nicotine 0.583 MG/HR Transdermal P atch [Nicoderm C-Q] Nicoderm CQ 14 mg/24 hr daily transdermal patch Nicoderm CQ 14 mg/24 hr daily transdermal patch completed 24 HR tamiko fredy 0.583 MG/HR Transdermal System [Nicoderm C-Q] [facility] ([facility]) 24 HR Nicotine 0.583 MG/HR Transdermal P atch [Nicoderm C-Q] Nicoderm CQ 14 mg/24 hr daily transdermal patch Nicoderm CQ 14 mg/24 hr daily transdermal patch completed 24 HR tamiko fredy 0.583 MG/HR Transdermal System [Nicoderm C-Q] [facility] ([facility]) 24 HR Nicotine 0.583 MG/HR Transdermal P atch [Nicoderm C-Q] Nicoderm CQ 14 mg/24 hr daily transdermal patch Nicoderm CQ 14 mg/24 hr daily transdermal patch completed 24 HR tamiko fredy 0.583 MG/HR Transdermal System [Nicoderm C-Q] [facility] ([facility]) doxycycline hyclate 100 MG Oral Tablet doxycycline hyc late 100 mg tablet doxycycline hyclate 100 mg tablet comp leted doxycycline hyclate 100 MG Oral Tablet [facility] ([facility]) 24 HR Nicotine 0.292 MG/HR Transdermal P atch nicotine 7 mg/24 hr daily transdermal patch nicotine 7 mg/24 hr daily transdermal patch completed 24 HR nicotine 0.292 MG/HR Trans dermal System [facility] ([facility]) hydroquinone 40 MG/ML Topical Cream hydroquinone 4 % t opical cream hydroquinone 4 % topical cream completed hydr oquinone 40 MG/ML Topical Cream [facility] ([facility]) 24 HR Nicotine 0.875 MG/HR Transdermal P atch [Nicoderm C-Q] Nicoderm CQ 21 mg/24 hr daily transdermal patch Nicoderm CQ 21 mg/24 hr daily transdermal patch completed 24 HR tamiko fredy 0.875 MG/HR Transdermal System [Nicoderm C-Q] [facility] ([facility]) duloxetine 20 MG Delayed Release Oral Ca psule duloxetine 20 mg capsule,delayed release twice a day duloxetine 20 mg capsule,delayed release twice a day completed duloxetine 20 MG Del ayed Release Oral Capsule [facility] ([facility]) bismuth subsalicylate 17.5 MG/ML Oral Godinez spension Bismatrol 262 mg/15 mL oral suspension Bismatrol 262 mg/15 mL oral suspension completed bismuth subsalicylate 17.5 MG/ML Oral Suspension [facility] ([facility]) 24 HR Nicotine 0.292 MG/HR Transdermal P atch nicotine 7 mg/24 hr daily transdermal patch nicotine 7 mg/24 hr daily transdermal patch completed 24 HR nicotine 0.292 MG/HR Trans dermal System [facility] ([facility]) 24 HR Nicotine 0.583 MG/HR Transdermal P atch [Nicoderm C-Q] Nicoderm CQ 14 mg/24 hr daily transdermal patch Nicoderm CQ 14 mg/24 hr daily transdermal patch completed 24 HR tamiko fredy 0.583 MG/HR Transdermal System [Nicoderm C-Q] [facility] ([facility]) POLYETHYLENE GLYCOL 3350 142 MG/ML Oral Solution polyethylene glycol 3350 17 gram/dose oral powder polyethylene glycol 3350 17 gram/dose oral powder completed polyethylene glycol 3350 70563 MG Powder for Oral Solution [facility] ([facility]) Hydrocortisone 10 MG/ML Topical Cream hydrocortisone 1 % topical cream hydrocortisone 1 % topical cream compl eted hydrocortisone 10 MG/ML Topical Cream [facility] ([facility]) Bisacodyl 5 MG Delayed Release Oral Tabl et bisacodyl 5 mg tablet,delayed release bisacodyl 5 mg tablet,delayed release completed bisacodyl 5 MG Delayed Release Oral Tablet [facility] ([facility]) 24 HR Nicotine 0.875 MG/HR Transdermal P atch [Nicoderm C-Q] Nicoderm CQ 21 mg/24 hr daily transdermal patch Nicoderm CQ 21 mg/24 hr daily transdermal patch completed 24 HR tamiko fredy 0.875 MG/HR Transdermal System [Nicoderm C-Q] [facility] ([facility]) 24 HR Nicotine 0.292 MG/HR Transdermal P atch nicotine 7 mg/24 hr daily transdermal patch nicotine 7 mg/24 hr daily transdermal patch completed 24 HR nicotine 0.292 MG/HR Trans dermal System [facility] ([facility]) Amlodipine 5 MG Oral Tablet amlodipine 5 mg tablet amlodipine 5 mg ta blet completed amlodipine 5 MG Oral Tablet [facility] ([facility]) 24 HR Nicotine 0.583 MG/HR Transdermal P atch [Nicoderm C-Q] Nicoderm CQ 14 mg/24 hr daily transdermal patch Nicoderm CQ 14 mg/24 hr daily transdermal patch completed 24 HR tamiko fredy 0.583 MG/HR Transdermal System [Nicoderm C-Q] [facility] ([facility]) POLYETHYLENE GLYCOL 3350 142 MG/ML Oral Solution polyethylene glycol 3350 17 gram/dose oral powder polyethylene glycol 3350 17 gram/dose oral powder completed polyethylene glycol 3350 43577 MG Powder for Oral Solution [facility] ([facility]) Amlodipine 5 MG Oral Tablet amlodipine 5 mg tablet amlodipine 5 mg ta blet completed amlodipine 5 MG Oral Tablet [facility] ([facility]) doxycycline hyclate 100 MG Oral Tablet doxycycline hyc late 100 mg tablet doxycycline hyclate 100 mg tablet comp leted doxycycline hyclate 100 MG Oral Tablet [facility] ([facility]) doxycycline hyclate 100 MG Oral Tablet doxycycline hyc late 100 mg tablet doxycycline hyclate 100 mg tablet comp leted doxycycline hyclate 100 MG Oral Tablet [facility] ([facility]) Bisacodyl 5 MG Delayed Release Oral Tabl et bisacodyl 5 mg tablet,delayed release bisacodyl 5 mg tablet,delayed release completed bisacodyl 5 MG Delayed Release Oral Tablet [facility] ([facility]) 24 HR Nicotine 0.292 MG/HR Transdermal P atch nicotine 7 mg/24 hr daily transdermal patch nicotine 7 mg/24 hr daily transdermal patch completed 24 HR nicotine 0.292 MG/HR Trans dermal System [facility] ([facility]) hydroquinone 40 MG/ML Topical Cream hydroquinone 4 % t opical cream hydroquinone 4 % topical cream completed hydr oquinone 40 MG/ML Topical Cream [facility] ([facility]) Hydrocortisone 10 MG/ML Topical Cream hydrocortisone 1 % topical cream hydrocortisone 1 % topical cream compl eted hydrocortisone 10 MG/ML Topical Cream [facility] ([facility]) doxycycline hyclate 100 MG Oral Tablet doxycycline hyc late 100 mg tablet doxycycline hyclate 100 mg tablet comp leted doxycycline hyclate 100 MG Oral Tablet [facility] ([facility]) Hydrocortisone 10 MG/ML Topical Cream hydrocortisone 1 % topical cream hydrocortisone 1 % topical cream compl eted hydrocortisone 10 MG/ML Topical Cream [facility] ([facility]) 24 HR Nicotine 0.292 MG/HR Transdermal P atch nicotine 7 mg/24 hr daily transdermal patch nicotine 7 mg/24 hr daily transdermal patch completed 24 HR nicotine 0.292 MG/HR Trans dermal System [facility] ([facility]) 24 HR Nicotine 0.292 MG/HR Transdermal P atch nicotine 7 mg/24 hr daily transdermal patch nicotine 7 mg/24 hr daily transdermal patch completed 24 HR nicotine 0.292 MG/HR Trans dermal System [facility] ([facility]) hydroquinone 40 MG/ML Topical Cream hydroquinone 4 % t opical cream hydroquinone 4 % topical cream completed hydr oquinone 40 MG/ML Topical Cream [facility] ([facility]) Pimecrolimus 10 MG/ML Topical Cream [Elidel] Elidel 1 % topical cream Elidel 1 % topical cream completed pimecrolimus 10 MG/ML Topical Cream [Elidel] [facility] ([facility]) hydroquinone 40 MG/ML Topical Cream hydroquinone 4 % t opical cream hydroquinone 4 % topical cream completed hydr oquinone 40 MG/ML Topical Cream [facility] ([facility]) Bisacodyl 5 MG Delayed Release Oral Tabl et bisacodyl 5 mg tablet,delayed release bisacodyl 5 mg tablet,delayed release completed bisacodyl 5 MG Delayed Release Oral Tablet [facility] ([facility]) duloxetine 20 MG Delayed Release Oral Ca psule duloxetine 20 mg capsule,delayed release twice a day duloxetine 20 mg capsule,delayed release twice a day completed duloxetine 20 MG Del ayed Release Oral Capsule [facility] ([facility]) Amlodipine 5 MG Oral Tablet amlodipine 5 mg tablet amlodipine 5 mg ta blet completed amlodipine 5 MG Oral Tablet [facility] ([facility]) Pimecrolimus 10 MG/ML Topical Cream [Elidel] Elidel 1 % topical cream Elidel 1 % topical cream completed pimecrolimus 10 MG/ML Topical Cream [Elidel] [facility] ([facility]) 24 HR Nicotine 0.875 MG/HR Transdermal P atch [Nicoderm C-Q] Nicoderm CQ 21 mg/24 hr daily transdermal patch Nicoderm CQ 21 mg/24 hr daily transdermal patch completed 24 HR tamiko fredy 0.875 MG/HR Transdermal System [Nicoderm C-Q] [facility] ([facility]) duloxetine 20 MG Delayed Release Oral Ca psule duloxetine 20 mg capsule,delayed release twice a day duloxetine 20 mg capsule,delayed release twice a day completed duloxetine 20 MG Del ayed Release Oral Capsule [facility] ([facility]) Pimecrolimus 10 MG/ML Topical Cream [Elidel] Elidel 1 % topical cream Elidel 1 % topical cream completed pimecrolimus 10 MG/ML Topical Cream [Elidel] [facility] ([facility]) Trazodone Hydrochloride 100 MG Oral Tablet trazodone 1 00 mg tablet trazodone 100 mg tablet completed trazodone h ydrochloride 100 MG Oral Tablet [facility] ([facility]) Amlodipine 5 MG Oral Tablet amlodipine 5 mg tablet amlodipine 5 mg ta blet completed amlodipine 5 MG Oral Tablet [facility] ([facility]) Amlodipine 5 MG Oral Tablet amlodipine 5 mg tablet amlodipine 5 mg ta blet completed amlodipine 5 MG Oral Tablet [facility] ([facility]) hydroquinone 40 MG/ML Topical Cream hydroquinone 4 % t opical cream hydroquinone 4 % topical cream completed hydr oquinone 40 MG/ML Topical Cream [facility] ([facility]) Bisacodyl 5 MG Delayed Release Oral Tabl et bisacodyl 5 mg tablet,delayed release bisacodyl 5 mg tablet,delayed release completed bisacodyl 5 MG Delayed Release Oral Tablet [facility] ([facility]) bismuth subsalicylate 17.5 MG/ML Oral Godinez spension Bismatrol 262 mg/15 mL oral suspension Bismatrol 262 mg/15 mL oral suspension completed bismuth subsalicylate 17.5 MG/ML Oral Suspension [facility] ([facility]) POLYETHYLENE GLYCOL 3350 142 MG/ML Oral Solution polyethylene glycol 3350 17 gram/dose oral powder polyethylene glycol 3350 17 gram/dose oral powder completed polyethylene glycol 3350 56242 MG Powder for Oral Solution [facility] ([facility]) bismuth subsalicylate 17.5 MG/ML Oral Godinez spension Bismatrol 262 mg/15 mL oral suspension Bismatrol 262 mg/15 mL oral suspension completed bismuth subsalicylate 17.5 MG/ML Oral Suspension [facility] ([facility]) POLYETHYLENE GLYCOL 3350 142 MG/ML Oral Solution polyethylene glycol 3350 17 gram/dose oral powder polyethylene glycol 3350 17 gram/dose oral powder completed polyethylene glycol 3350 45534 MG Powder for Oral Solution [facility] ([facility]) Pimecrolimus 10 MG/ML Topical Cream [Elidel] Elidel 1 % topical cream Elidel 1 % topical cream completed pimecrolimus 10 MG/ML Topical Cream [Elidel] [facility] ([facility]) POLYETHYLENE GLYCOL 3350 142 MG/ML Oral Solution polyethylene glycol 3350 17 gram/dose oral powder polyethylene glycol 3350 17 gram/dose oral powder completed polyethylene glycol 3350 61809 MG Powder for Oral Solution [facility] ([facility]) Pimecrolimus 10 MG/ML Topical Cream [Elidel] Elidel 1 % topical cream Elidel 1 % topical cream completed pimecrolimus 10 MG/ML Topical Cream [Elidel] [facility] ([facility]) 24 HR Nicotine 0.875 MG/HR Transdermal P atch [Nicoderm C-Q] Nicoderm CQ 21 mg/24 hr daily transdermal patch Nicoderm CQ 21 mg/24 hr daily transdermal patch completed 24 HR tamiko fredy 0.875 MG/HR Transdermal System [Nicoderm C-Q] [facility] ([facility]) hydroquinone 40 MG/ML Topical Cream hydroquinone 4 % t opical cream hydroquinone 4 % topical cream completed hydr oquinone 40 MG/ML Topical Cream [facility] ([facility]) Hydrocortisone 10 MG/ML Topical Cream hydrocortisone 1 % topical cream hydrocortisone 1 % topical cream compl eted hydrocortisone 10 MG/ML Topical Cream [facility] ([facility]) hydroquinone 40 MG/ML Topical Cream hydroquinone 4 % t opical cream hydroquinone 4 % topical cream completed hydr oquinone 40 MG/ML Topical Cream [facility] ([facility]) Hydrocortisone 10 MG/ML Topical Cream hydrocortisone 1 % topical cream hydrocortisone 1 % topical cream compl eted hydrocortisone 10 MG/ML Topical Cream [facility] ([facility] [facility]) bismuth subsalicylate 17.5 MG/ML Oral Godinez spension Bismatrol 262 mg/15 mL oral suspension Bismatrol 262 mg/15 mL oral suspension completed bismuth subsalicylate 17.5 MG/ML Oral Suspension USMAN ([facility]) Hydrocortisone 10 MG/ML Topical Cream hydrocortisone 1 % topical cream hydrocortisone 1 % topical cream compl eted hydrocortisone 10 MG/ML Topical Cream USMAN ([facility]) 24 HR Nicotine 0.583 MG/HR Transdermal P atch [Nicoderm C-Q] Nicoderm CQ 14 mg/24 hr daily transdermal patch Nicoderm CQ 14 mg/24 hr daily transdermal patch completed 24 HR tamiko fredy 0.583 MG/HR Transdermal System [Nicoderm C-Q] USMAN ([facility]) bismuth subsalicylate 17.5 MG/ML Oral Godinez spension Bismatrol 262 mg/15 mL oral suspension Bismatrol 262 mg/15 mL oral suspension completed bismuth subsalicylate 17.5 MG/ML Oral Suspension USMAN ([facility]) 24 HR Nicotine 0.583 MG/HR Transdermal P atch [Nicoderm C-Q] Nicoderm CQ 14 mg/24 hr daily transdermal patch Nicoderm CQ 14 mg/24 hr daily transdermal patch completed 24 HR tamiko fredy 0.583 MG/HR Transdermal System [Nicoderm C-Q] USMAN ([facility]) POLYETHYLENE GLYCOL 3350 142 MG/ML Oral Solution polyethylene glycol 3350 17 gram/dose oral powder polyethylene glycol 3350 17 gram/dose oral powder completed polyethylene glycol 3350 01835 MG Powder for Oral Solution USMAN ([facility]) Trazodone Hydrochloride 100 MG Oral Tablet trazodone 1 00 mg tablet trazodone 100 mg tablet completed trazodone hy drochloride 100 MG Oral Tablet USMAN ([facility]) bismuth subsalicylate 17.5 MG/ML Oral Godinez spension Bismatrol 262 mg/15 mL oral suspension Bismatrol 262 mg/15 mL oral suspension completed bismuth subsalicylate 17.5 MG/ML Oral Suspension USMAN ([facility]) Hydrocortisone 10 MG/ML Topical Cream hydrocortisone 1 % topical cream hydrocortisone 1 % topical cream compl eted hydrocortisone 10 MG/ML Topical Cream USMAN ([facility]) Amlodipine 5 MG Oral Tablet amlodipine 5 mg tablet amlodipine 5 mg ta blet completed amlodipine 5 MG Oral Tablet USMAN ([facility]) doxycycline hyclate 100 MG Oral Tablet doxycycline hyc late 100 mg tablet doxycycline hyclate 100 mg tablet comp leted doxycycline hyclate 100 MG Oral Tablet USMAN ([facility]) hydroquinone 40 MG/ML Topical Cream hydroquinone 4 % t opical cream hydroquinone 4 % topical cream completed hydr oquinone 40 MG/ML Topical Cream USMAN ([facility]) 24 HR Nicotine 0.292 MG/HR Transdermal P atch nicotine 7 mg/24 hr daily transdermal patch nicotine 7 mg/24 hr daily transdermal patch completed 24 HR nicotine 0.292 MG/HR Trans dermal System USMAN ([facility]) bismuth subsalicylate 17.5 MG/ML Oral Godinez spension Bismatrol 262 mg/15 mL oral suspension Bismatrol 262 mg/15 mL oral suspension completed bismuth subsalicylate 17.5 MG/ML Oral Suspension USMAN ([facility]) 24 HR Nicotine 0.292 MG/HR Transdermal P atch nicotine 7 mg/24 hr daily transdermal patch nicotine 7 mg/24 hr daily transdermal patch completed 24 HR nicotine 0.292 MG/HR Trans dermal System USMAN ([facility]) bismuth subsalicylate 17.5 MG/ML Oral Godinez spension Bismatrol 262 mg/15 mL oral suspension Bismatrol 262 mg/15 mL oral suspension completed bismuth subsalicylate 17.5 MG/ML Oral Suspension USMAN ([facility]) POLYETHYLENE GLYCOL 3350 142 MG/ML Oral Solution polyethylene glycol 3350 17 gram/dose oral powder polyethylene glycol 3350 17 gram/dose oral powder completed polyethylene glycol 3350 29735 MG Powder for Oral Solution USMAN ([facility]) 24 HR Nicotine 0.583 MG/HR Transdermal P atch [Nicoderm C-Q] Nicoderm CQ 14 mg/24 hr daily transdermal patch Nicoderm CQ 14 mg/24 hr daily transdermal patch completed 24 HR tamiko fredy 0.583 MG/HR Transdermal System [Nicoderm C-Q] USMAN ([facility]) Hydrocortisone 10 MG/ML Topical Cream hydrocortisone 1 % topical cream hydrocortisone 1 % topical cream compl eted hydrocortisone 10 MG/ML Topical Cream USMAN ([facility]) hydroquinone 40 MG/ML Topical Cream hydroquinone 4 % t opical cream hydroquinone 4 % topical cream completed hydr oquinone 40 MG/ML Topical Cream USMAN ([facility]) 24 HR Nicotine 0.875 MG/HR Transdermal P atch [Nicoderm C-Q] Nicoderm CQ 21 mg/24 hr daily transdermal patch Nicoderm CQ 21 mg/24 hr daily transdermal patch completed 24 HR tamiko fredy 0.875 MG/HR Transdermal System [Nicoderm C-Q] USMAN ([facility]) Hydrocortisone 10 MG/ML Topical Cream hydrocortisone 1 % topical cream hydrocortisone 1 % topical cream compl eted hydrocortisone 10 MG/ML Topical Cream USMAN ([facility]) doxycycline hyclate 100 MG Oral Tablet doxycycline hyc late 100 mg tablet doxycycline hyclate 100 mg tablet comp leted doxycycline hyclate 100 MG Oral Tablet USMAN ([facility]) Bisacodyl 5 MG Delayed Release Oral Tabl et bisacodyl 5 mg tablet,delayed release bisacodyl 5 mg tablet,delayed release completed bisacodyl 5 MG Delayed Release Oral Tablet USMAN ([facility]) Pimecrolimus 10 MG/ML Topical Cream [Elidel] Elidel 1 % topical cream Elidel 1 % topical cream completed pimecrolimus 10 MG/ML Topical Cream [Elidel] [facility]MAN ([facility]) doxycycline hyclate 100 MG Oral Tablet doxycycline hyc late 100 mg tablet doxycycline hyclate 100 mg tablet comp leted doxycycline hyclate 100 MG Oral Tablet USMAN ([facility]) Amlodipine 5 MG Oral Tablet amlodipine 5 mg tablet amlodipine 5 mg ta blet completed amlodipine 5 MG Oral Tablet [facility]MAN ([facility]) Bisacodyl 5 MG Delayed Release Oral Tabl et bisacodyl 5 mg tablet,delayed release bisacodyl 5 mg tablet,delayed release completed bisacodyl 5 MG Delayed Release Oral Tablet USMAN ([facility]) Bisacodyl 5 MG Delayed Release Oral Tabl et bisacodyl 5 mg tablet,delayed release bisacodyl 5 mg tablet,delayed release completed bisacodyl 5 MG Delayed Release Oral Tablet USMAN ([facility]) Amlodipine 5 MG Oral Tablet amlodipine 5 mg tablet amlodipine 5 mg ta blet completed amlodipine 5 MG Oral Tablet USMAN ([facility]) doxycycline hyclate 100 MG Oral Tablet doxycycline hyc late 100 mg tablet doxycycline hyclate 100 mg tablet comp leted doxycycline hyclate 100 MG Oral Tablet USMAN ([facility]) Trazodone Hydrochloride 100 MG Oral Tablet trazodone 1 00 mg tablet trazodone 100 mg tablet completed trazodone h ydrochloride 100 MG Oral Tablet USMAN ([facility]) Insurance Providers Payer name Policy type / Coverage type Policy ID Covered democrat ID Covered democrat's relationship to feldman Policy Feldman Plan Information [facility] [id number] SP [id number] [facility] F [id number] SELF [id number] SELF PAY ONLY [id number] SP [id number] [facility] [id number] 18 [id number] [facility]/P [id number] 18 [id number] [facility] [id number] 18 [id number] [facility] O [id number] O [id number] Problems, Conditions, and Diagnoses Code Display Name Description Problem Type Effective Dates Data Source(s) 85119010 Hypersomnia Hypersomnia Problem 08/14/2020 12:00:00 AM EST MEDENT ([facility]) [id number] Malaise and fatigue Malaise and fatigue Problem 0 08/14/2020 12:00:00 AM EST MEDENT ([facility]) [id number] Obstructive sleep apnea syndrome Obstructive sle ep apnea syndrome Problem 08/14/2020 12:00:00 AM EST [facility] ([facility]) [id number] Periodic limb movement disorder Periodic limb mo vement disorder Problem 08/14/2020 12:00:00 AM EST [facility] ([facility] ) [id number] Gastroesophageal reflux disease Gastroesophageal reflux disease Problem 08/02/2020 12:00:00 AM EST [facility] [id number] Disorders of initiating and maintaining sleep Disorders of initiating and maintaining sleep Problem 06/13/2020 12:00:00 AM EST [facility] ([facility]) [id number] Migraine without aura, not refractory Mi graine without aura, not refractory Problem 06/13/2020 12:00:00 AM EST MEDENT ([facility]) [id number] Chronic tension-type headache Chronic tension-type hea dache Problem 06/13/2020 12:00:00 AM EST MEDENT ([facility]) [id number] Numbness of lower limb Numbness of lower limb Problem 03/14/2020 12:00:00 AM EDT MEDENT ([facility]) [id number] Lumbosacral radiculopathy Lumbosacral radiculopathy Pr oblem 03/14/2020 12:00:00 AM EDT MEDENT ([facility]) [id number] Chronic low back pain Chronic low back pain Problem 03/14/2020 12:00:00 AM EDT MED[facility] ([facility] ) 09223184 Carpal tunnel syndrome Carpal tunnel syndrome Problem 02/28/2020 12:00:00 AM EDT MEDENT ([facility] ) [id number] Numbness of hand Numbness of hand Problem 02/28/2020 12 :00:00 AM EDT MEDENT ([facility] ) 04138216 Hand pain Hand pain Problem 02/28/2020 12:00:00 AM ED T MEDENT ([facility] ) 68581544 Essential hypertension Essential hypertension Problem 02/23/2020 12:00:00 AM EDT [facility] ([facility]) [id number] Encounter for other specified surgical a ftercare Encounter for other specified surgical aftercare Diagnosis 07/05/2020 10:06:00 AM [facility] [id number] Encounter for other preprocedural examin ation Encounter for other preprocedural examination Diagnosis 06/19/2020 03:50:00 PM [facility] [id number] Primary osteoarthritis, left ankle and f oot Primary osteoarthritis, left ankle and foot Diagnosis 06/07/2020 02:55:00 PM [facility] B13611 Bunion of left foot Bunion of left foot Diagnosis 1 08/07/2019 02:55:00 PM [facility] K5790 Diverticulosis of intestine, part unspecified, without perforation or abscess without bleeding Diverticulosis of intestine, part unspec ified, without perforation or abscess without bleeding Diagnosis 03/20/2020 08:00:00 AM [facility] K582 Mixed irritable bowel syndrome Mixed irritable bowel s yndrome Diagnosis 03/20/2020 08:00:00 AM [facility] Z1211 Encounter for screening for malignant ne oplasm of colon Encounter for screening for malignant neoplasm of colon Diagnosis 03/20/2020 08:00:0 0 AM [facility] Surgeries/Procedures Procedure Description Date Indications Data Source(s) ELECTROENCEPHALOGRAM W/REC AWAKE&ASLEEP 08/07/2020 12: 00:00 AM EST [facility] ([facility] ) ELECTROENCEPHALOGRAM W/REC AWAKE&ASLEEP 08/07/2020 12: 00:00 AM EST [facility] ([facility] ) No Chargeable Service 07/05/2020 12:00:00 AM EST [facility] ([facility]) MRI BRAIN BRAIN STEM W/O CONTRAST MATERIAL 06/29/2020 12:00:00 AM EST [facility] ([facility] ) MRI BRAIN BRAIN STEM W/O CONTRAST MATERIAL 06/29/2020 12:00:00 AM EST [facility] ([facility] ) UNLISTED PROCEDURE FOOT/TOES Foot/toes Surgery Procedure 09/2019 12:00:00 AM EST [facility] ([facility] UNLISTED PROCEDURE FOOT/TOES Foot/toes Surgery Procedure 09/2019 12:00:00 AM EST [facility] ([facility]) UNLISTED PROCEDURE FOOT/TOES Foot/toes Surgery Procedure 09/2019 12:00:00 AM EST [facility] ([facility]) ARTHROCENTESIS ASPIR&/INJECTION MAJOR JT/BURSA 12:00:00 AM EDT [facility] ([facility] ) ARTHROCENTESIS ASPIR&/INJECTION MAJOR JT/BURSA 12:00:00 AM EDT MEDENT ([facility] ) ARTHROCENTESIS ASPIR&/INJECTION MAJOR JT/BURSA 12:00:00 AM EDT MED[facility] ([facility] ) ARTHROCENTESIS ASPIR&/INJECTION MAJOR JT/BURSA 12:00:00 AM EDT [facility] ([facility] ) Needle electromyography, each extremity, with related paraspinal areas, when performed, done with nerve conduction, amplitude and latency/velocity study; complete, five or more muscles studied, innervated by three or more nerves or four or more spinal levels (list separately in addition to the code for primary procedure). 03/15/2020 12:00:00 AM EDT MEDEN T ([facility] ) Needle electromyography, each extremity, with related paraspinal areas, when performed, done with nerve conduction, amplitude and latency/velocity study; complete, five or more muscles studied, innervated by three or more nerves or four or more spinal levels (list separately in addition to the code for primary procedure). 03/15/2020 12:00:00 AM EDT MEDEN T ([facility]) 30895 Nerve conduction studies 13 or more studies NEW 201203/15/2020 12:00:00 AM EDT MEDENT ([facility]) Needle electromyography, each extremity, with related paraspinal areas, when performed, done with nerve conduction, amplitude and latency/velocity study; complete, five or more muscles studied, innervated by three or more nerves or four or more spinal levels (list separately in addition to the code for primary procedure). 02/29/2020 12:00:00 AM EDT MEDEN T ([facility]) Needle electromyography, each extremity, with related paraspinal areas, when performed, done with nerve conduction, amplitude and latency/velocity study; complete, five or more muscles studied, innervated by three or more nerves or four or more spinal levels (list separately in addition to the code for primary procedure). 02/29/2020 12:00:00 AM EDT MEDEN T ([facility]) Needle Electromyography Non Extremity Done With Nerve Conduc tion 02/29/2020 12:00:00 AM EDT MED[facility] ([facility]) 50275 Nerve conduction studies 13 or more studies NEW 201202/29/2020 12:00:00 AM EDT [facility] ([facility]) Results ID Date Data Source [id number] 08/10/2020 09:26:00 AM EST [facility] Name Value Range Interpretation Code Description Data Flory rce(s) Supporting Document(s) SARS coronavirus 2 RNA Not Detected [facility] This lab was ordered by [facility] Laboratory and reported by [facility]. ID Date Data Source [id number] 06/21/2020 07:15:00 AM EST [facility] Name Value Range Interpretation Code Description Data Flory rce(s) Supporting Document(s) HCG URINE QUAL NEGATIVE NORMAL: NEGATIVE [facility] HCG URINE QL REENTER NEGATIVE NORMAL: NEGATIVE [facility] { KIT LOT # [id number] ){ KIT EXP DATE 04.24.21 ){ PROCEDURAL CONTROL VALID ) ID Date Data Source [id number] 06/06/2020 10:16:00 AM EST [facility] Name Value Range Interpretation Code Description Data Flory rce(s) Supporting Document(s) SARS coronavirus 2 RNA [facility] This lab was ordered by [facility] and reported by [facility]. ID Date Data Source [id number] 06/05/2020 12:00:00 AM EST [facility] Name Value Range Interpretation Code Description Data Flory rce(s) Supporting Document(s) 2019-nCoV RNA XXX SUNIL+probe-Imp [facility] This lab was ordered by [facility] and reported by [facility]. ID Date Data Source [id number] 06/01/2020 10:15:00 AM EST [facility] Name Value Range Interpretation Code Description Data Flory rce(s) Supporting Document(s) SARS coronavirus 2 RNA [facility] This lab was ordered by [facility] and reported by [facility]. ID Date Data Source [id number] 05/18/2020 10:01:00 AM EDT [facility] Name Value Range Interpretation Code Description Data Flory rce(s) Supporting Document(s) SARS coronavirus 2 RNA [facility] This lab was ordered by [facility] and reported by [facility]. ID Date Data Source [id number] 04/05/2020 12:00:00 AM EDT [facility]y Imaging Radha Morales MD Patient Name: JACKIE [id number] [facility] Date of :1970[place] [address] Date of Exam: 04/05/2020PH#: Fax: [phone] EXAM: MAMMO SCREENING WITH CADCLINICAL INFORMATION: Screening.Based on the personal and family history information your patient suppliedat the time of imaging, her lifetime risk of breast cancer estimated by theTyrer-Cuzick model is 16.6%. Given that this patient has less than 20% TCrisk score, no further medical management is currently recommended at thistime.Your patient's personal and/or family history of cancer submitted at thetime of imaging is suggestive of a hereditary cancer syndrome. She meetsthe criteria for genetic testing established by National [facility] and [place] [employer] guidelines. She should pursue arisk assessment with a hereditary cancer specialist which may includetesting based on these criteria. The benefits and limitations of genetictesting would be discussed, including potential changes to medicalmanagement based on the results. Your patient declined myRisk genetictesting at this time.Digital screening (2D) mammography was performed bilaterally in the CC andMLO projections.By history, the patient has no complaints of a palpable breast abnormalityor other significant breast complaints.The patient states last clinical breast exam was sometime during 2017.The breasts are unchanged in size and shape. There are no paulo-soft tissuedensities or spiculated masses. There is no internal architecturaldistortion. There are no suspicious paulo-calcific clusters. Skinthickening or nipple retraction is not present.The Volpara volumetric breast density category is B, there are scatteredareas of fibroglandular density.IMPRESSION:BI-RADS Category 1- Negative mammogram. Stable mammogram. There is noevidence of malignant alteration of the breasts. Followup examinationrecommended in one year.This mammogram was read with the assistance of [facility] [employer], an FDAapproved computer aided detection system for mammography.Negative x-ray reports should not delay surgical consultation if a dominantor clinically suspicious mass is present.Not all breast cancers can be identified by mammography. Therefore, werecommend that you continue to perform regular breast self-examination andphysical examination and then promptly contact your physician of anyconcerns or changes.Adenosis and dense breasts may obscure an underlying neoplasm.RUI Lopez/Gwyn you for referring JACKIE VANN to our office. Electronically Signed - ANDRZEJ ALVARADO DO 04/06/20 12:32 Name Value Range Interpretation Code Description Data Flory rce(s) Supporting Document(s) ID Date Data Source [id number] 03/20/2020 08:52:00 AM EDT [facility] Name Value Range Interpretation Code Description Data Flory rce(s) Supporting Document(s) HCG URINE QUAL NEGATIVE NORMAL: NEGATIVE [facility] HCG URINE QL REENTER NEGATIVE NORMAL: NEGATIVE [facility] { KIT LOT # [id number] ){ KIT EXP DATE 05/01/21 ){ PROCEDURAL CONTROL VALID ) Procedure Social History Code Duration Value Status Description Data Source(s ) Smoking 06/07/2020 12:00:00 AM EST Patient is a former smoker completed Patient is a former smoker [facility] ([facility]) Vital Signs ID Date Data Source UNK Name Value Range Interpretation Code Description Data Source(s) Systolic blood pressure 105 mm[Hg] 105 mm[Hg] A THENA ([facility]) Body height 67 [in_i] 67 [in_i] USMAN ([facility]) Diastolic blood pressure 75 mm[Hg] 75 mm[Hg] USMAN ([facility]) Body temperature 97.0 [degF] 97.0 [degF] [facility] ([facility]) Body weight 78.473 kg 78.473 kg [facility] Body mass index (BMI) [Ratio] 27.1 kg/m2 27.1 k g/m2 [facility] ([facility]) Heart rate 82 /min 82 /min [facility]) Diastolic blood pressure 81 mm[Hg] 81 mm[Hg] [facility] ([facility]) Systolic blood pressure 123 mm[Hg] 123 mm[Hg] M EDENT ([facility]) Body weight 173.00 [lb_av] 173.00 [lb_av] MEDEN T ([facility]) Body height 67 [in_i] 67 [in_i] [facility] 5'7" Body height 67 [in_i] 67 [in_i] USMAN ([facility]) Body height 67 [in_i] 67 [in_i] USMAN ([facility]) Body height 67 [in_i] 67 [in_i] USMAN ([facility]) Body temperature 97.5 [degF] 97.5 [degF] [facility] ([facility]) Body weight 167 [lb_av] 167 [lb_av] [facility] ([facility]) Systolic blood pressure 138 mm[Hg] 138 mm[Hg] A THENA ([facility]) Body mass index (BMI) [Ratio] 26.2 kg/m2 26.2 k g/m2 [facility] ([facility]) Body height 67 [in_i] 67 [in_i] [facility] ([facility]) Diastolic blood pressure 95 mm[Hg] 95 mm[Hg] USMAN ([facility]) Body weight 167 [lb_av] 167 [lb_av] [facility] ([facility]) Systolic blood pressure 138 mm[Hg] 138 mm[Hg] A THENA ([facility]) Body mass index (BMI) [Ratio] 26.2 kg/m2 26.2 k g/m2 [facility] ([facility]) Body height 67 [in_i] 67 [in_i] [facility] ([facility]) Diastolic blood pressure 95 mm[Hg] 95 mm[Hg] USMAN ([facility]) Body weight 167 [lb_av] 167 [lb_av] [facility] ([facility]) Systolic blood pressure 138 mm[Hg] 138 mm[Hg] A THENA ([facility]) Body mass index (BMI) [Ratio] 26.2 kg/m2 26.2 k g/m2 [facility] ([facility]) Body height 67 [in_i] 67 [in_i] [facility]MAN ([facility]) Diastolic blood pressure 95 mm[Hg] 95 mm[Hg] USMAN ([facility]) Body weight 167 [lb_av] 167 [lb_av] [facility] ([facility]) Systolic blood pressure 138 mm[Hg] 138 mm[Hg] A THENA ([facility]) Body mass index (BMI) [Ratio] 26.2 kg/m2 26.2 k g/m2 [facility] ([facility]) Body height 67 [in_i] 67 [in_i] USMAN ([facility]) Diastolic blood pressure 95 mm[Hg] 95 mm[Hg] USMAN ([facility]) Body weight 167 [lb_av] 167 [lb_av] [facility] ([facility]) Systolic blood pressure 138 mm[Hg] 138 mm[Hg] A THENA ([facility]) Body mass index (BMI) [Ratio] 26.2 kg/m2 26.2 k g/m2 USMAN ([facility]) Body height 67 [in_i] 67 [in_i] [facility]MAN ([facility]) Diastolic blood pressure 95 mm[Hg] 95 mm[Hg] USMAN ([facility]) Body weight 167 [lb_av] 167 [lb_av] [facility] ([facility]) Systolic blood pressure 138 mm[Hg] 138 mm[Hg] A THENA ([facility]) Body mass index (BMI) [Ratio] 26.2 kg/m2 26.2 k g/m2 USMAN ([facility]) Body height 67 [in_i] 67 [in_i] USMAN ([facility]) Diastolic blood pressure 95 mm[Hg] 95 mm[Hg] USMAN ([facility]) Body weight 167 [lb_av] 167 [lb_av] [facility] ([facility]) Systolic blood pressure 138 mm[Hg] 138 mm[Hg] A THENA ([facility]) Body mass index (BMI) [Ratio] 26.2 kg/m2 26.2 k g/m2 USMAN ([facility]) Body height 67 [in_i] 67 [in_i] USMAN ([facility]) Diastolic blood pressure 95 mm[Hg] 95 mm[Hg] USMAN ([facility]) Body weight 167 [lb_av] 167 [lb_av] [facility]MAN ([facility]) Systolic blood pressure 138 mm[Hg] 138 mm[Hg] A THENA ([facility]) Body mass index (BMI) [Ratio] 26.2 kg/m2 26.2 k g/m2 USMAN ([facility]) Body height 67 [in_i] 67 [in_i] USMAN ([facility]) Diastolic blood pressure 95 mm[Hg] 95 mm[Hg] USMAN ([facility]) Body weight 167 [lb_av] 167 [lb_av] USMAN ([facility]) Systolic blood pressure 138 mm[Hg] 138 mm[Hg] A THENA ([facility]) Body mass index (BMI) [Ratio] 26.2 kg/m2 26.2 k g/m2 USMAN ([facility]) Body height 67 [in_i] 67 [in_i] USMAN ([facility]) Diastolic blood pressure 95 mm[Hg] 95 mm[Hg] USMAN ([facility]) [place] body weight 135 [lb_av] 135 [lb_av] MEDEN T ([facility] ) Body mass index (BMI) [Ratio] 26.5 kg/m2 26.5 k g/m2 MEDENT ([facility] ) Body weight 169.00 [lb_av] 169.00 [lb_av] MEDEN T ([facility], ) Body height 67 [in_i] 67 [in_i] MEDENT ([facility], ) 5'7" Heart rate 72 /min 72 /min MEDENT ([facility] ) Diastolic blood pressure 80 mm[Hg] 80 mm[Hg] MEDENT ([facility] ) Systolic blood pressure 120 mm[Hg] 120 mm[Hg] M EDENT ([facility], ) Body mass index (BMI) [Ratio] 26.6 kg/m2 26.6 k g/m2 MEDENT ([facility] ) Body weight 170.00 [lb_av] 170.00 [lb_av] MEDEN T ([facility] ) Body height 67 [in_i] 67 [in_i] MEDENT ([facility] ) 5'7" Body temperature 97.3 [degF] 97.3 [degF] MEDENT ([facility] ) Body weight 82.102 kg 82.102 kg MEDENT ([facility]) Body weight 181.00 [lb_av] 181.00 [lb_av] MEDEN T ([facility]) Oxygen saturation in Arterial blood by Pulse oximetry 97 % 97 % MEDENT ([facility]) Respiratory rate 18 /min 18 /min MEDENT ( [facility]) Body temperature 98.1 [degF] 98.1 [degF] MEDENT ([facility]) Heart rate 91 /min 91 /min MEDENT ([facility]) Diastolic blood pressure 85 mm[Hg] 85 mm[Hg] MEDENT ([facility]) Systolic blood pressure 124 mm[Hg] 124 mm[Hg] M EDENT ([facility]) ID Date Data Source [id number] 07/05/2020 10:06:52 AM EST [facility] Name Value Range Interpretation Code Description Data Source(s) WEIGHT RECORDED 169.00 pounds 169.00 pounds [facility] Height 67 Inches 067 Inches [facility] ID Date Data Source [id number] 03/23/2020 03:13:17 PM EDT [facility] Name Value Range Interpretation Code Description Data Source(s) WEIGHT RECORDED 169.00 pounds 169.00 pounds [facility] Height 67 Inches 067 Inches [facility] Patient Treatment Plan of Care Planned Activity Planned Date Details Description Data Source (s) Trazodone Hydrochloride 100 MG Oral Tablet USMAN ([facility]) POLYETHYLENE GLYCOL 3350 142 MG/ML Oral Solution USMAN ([facility]) 24 HR Nicotine 0.292 MG/HR Transdermal Patch USMAN ([facility]) 24 HR Nicotine 0.583 MG/HR Transdermal Patch [Nicoderm C-Q] USMAN ([facility]) hydroquinone 40 MG/ML Topical Cream USMAN ([facility]) Hydrocortisone 10 MG/ML Topical Cream USMAN ([facility]) Pimecrolimus 10 MG/ML Topical Cream [Elidel] USMAN ([facility]) duloxetine 20 MG Delayed Release Oral Capsule [facility]MAN ([facility]) doxycycline hyclate 100 MG Oral Tablet [facility]MAN ([facility]) bismuth subsalicylate 17.5 MG/ML Oral Suspension [facility]MAN ([facility]) Bisacodyl 5 MG Delayed Release Oral Tablet [facility] ([facility]) Amlodipine 5 MG Oral Tablet [facility] ([facility]) Trazodone Hydrochloride 100 MG Oral Tablet [facility]MAN ([facility]) POLYETHYLENE GLYCOL 3350 142 MG/ML Oral Solution USMAN ([facility]) 24 HR Nicotine 0.292 MG/HR Transdermal Patch [facility] ([facility]) 24 HR Nicotine 0.583 MG/HR Transdermal Patch [Nicoderm C-Q] USMAN ([facility]) hydroquinone 40 MG/ML Topical Cream USMAN ([facility]) Hydrocortisone 10 MG/ML Topical Cream [facility] ([facility]) Pimecrolimus 10 MG/ML Topical Cream [Elidel] USMAN ([facility]) duloxetine 20 MG Delayed Release Oral Capsule [facility] ([facility]) doxycycline hyclate 100 MG Oral Tablet [facility] ([facility]) bismuth subsalicylate 17.5 MG/ML Oral Suspension [facility] ([facility]) Bisacodyl 5 MG Delayed Release Oral Tablet [facility] ([facility]) Amlodipine 5 MG Oral Tablet [facility] ([facility]) Trazodone Hydrochloride 100 MG Oral Tablet [facility] ([facility]) POLYETHYLENE GLYCOL 3350 142 MG/ML Oral Solution USMAN ([facility]) 24 HR Nicotine 0.292 MG/HR Transdermal Patch [facility] ([facility]) 24 HR Nicotine 0.583 MG/HR Transdermal Patch [Nicoderm C-Q] USMAN ([facility]) hydroquinone 40 MG/ML Topical Cream [facility]MAN ([facility]) Hydrocortisone 10 MG/ML Topical Cream [facility]MAN ([facility]) Pimecrolimus 10 MG/ML Topical Cream [Elidel] USMAN ([facility]) duloxetine 20 MG Delayed Release Oral Capsule [facility] ([facility]) doxycycline hyclate 100 MG Oral Tablet [facility] ([facility]) bismuth subsalicylate 17.5 MG/ML Oral Suspension [facility] ([facility]) Bisacodyl 5 MG Delayed Release Oral Tablet [facility] ([facility]) Amlodipine 5 MG Oral Tablet [facility] ([facility]) POLYETHYLENE GLYCOL 3350 142 MG/ML Oral Solution USMAN ([facility]) 24 HR Nicotine 0.292 MG/HR Transdermal Patch [facility]MAN ([facility]) 24 HR Nicotine 0.875 MG/HR Transdermal Patch [Nicoderm C-Q] USMAN ([facility]) 24 HR Nicotine 0.583 MG/HR Transdermal Patch [Nicoderm C-Q] USMAN ([facility]) hydroquinone 40 MG/ML Topical Cream USMAN ([facility]) Hydrocortisone 10 MG/ML Topical Cream [facility] ([facility]) Pimecrolimus 10 MG/ML Topical Cream [Elidel] USMAN ([facility]) doxycycline hyclate 100 MG Oral Tablet [facility]MAN ([facility]) bismuth subsalicylate 17.5 MG/ML Oral Suspension [facility] ([facility]) Bisacodyl 5 MG Delayed Release Oral Tablet [facility] ([facility]) Amlodipine 5 MG Oral Tablet [facility] ([facility]) POLYETHYLENE GLYCOL 3350 142 MG/ML Oral Solution USMAN ([facility]) 24 HR Nicotine 0.292 MG/HR Transdermal Patch [facility]MAN ([facility]) 24 HR Nicotine 0.875 MG/HR Transdermal Patch [Nicoderm C-Q] USMAN ([facility]) 24 HR Nicotine 0.583 MG/HR Transdermal Patch [Nicoderm C-Q] USMAN ([facility]) hydroquinone 40 MG/ML Topical Cream USMAN ([facility]) Hydrocortisone 10 MG/ML Topical Cream [facility] ([facility]) Pimecrolimus 10 MG/ML Topical Cream [Elidel] USMAN ([facility]) doxycycline hyclate 100 MG Oral Tablet [facility]MAN ([facility]) bismuth subsalicylate 17.5 MG/ML Oral Suspension [facility] ([facility]) Bisacodyl 5 MG Delayed Release Oral Tablet [facility] ([facility]) Amlodipine 5 MG Oral Tablet [facility] ([facility]) POLYETHYLENE GLYCOL 3350 142 MG/ML Oral Solution USMAN ([facility]) 24 HR Nicotine 0.292 MG/HR Transdermal Patch [facility] ([facility]) 24 HR Nicotine 0.875 MG/HR Transdermal Patch [Nicoderm C-Q] USMAN ([facility]) 24 HR Nicotine 0.583 MG/HR Transdermal Patch [Nicoderm C-Q] USMAN ([facility]) hydroquinone 40 MG/ML Topical Cream USMAN ([facility]) Hydrocortisone 10 MG/ML Topical Cream [facility]MAN ([facility]) Pimecrolimus 10 MG/ML Topical Cream [Elidel] USMAN ([facility]) doxycycline hyclate 100 MG Oral Tablet USMAN ([facility]) bismuth subsalicylate 17.5 MG/ML Oral Suspension [facility]MAN ([facility]) Bisacodyl 5 MG Delayed Release Oral Tablet [facility] ([facility]) Amlodipine 5 MG Oral Tablet [facility] ([facility]) POLYETHYLENE GLYCOL 3350 142 MG/ML Oral Solution USMAN ([facility]) 24 HR Nicotine 0.292 MG/HR Transdermal Patch USMAN ([facility]) 24 HR Nicotine 0.875 MG/HR Transdermal Patch [Nicoderm C-Q] USMAN ([facility]) 24 HR Nicotine 0.583 MG/HR Transdermal Patch [Nicoderm C-Q] USMAN ([facility]) hydroquinone 40 MG/ML Topical Cream USMAN ([facility]) Hydrocortisone 10 MG/ML Topical Cream USMAN ([facility]) Pimecrolimus 10 MG/ML Topical Cream [Elidel] USMAN ([facility]) doxycycline hyclate 100 MG Oral Tablet USMAN ([facility]) bismuth subsalicylate 17.5 MG/ML Oral Suspension USMAN ([facility]) Bisacodyl 5 MG Delayed Release Oral Tablet [facility]MAN ([facility]) Amlodipine 5 MG Oral Tablet [facility]MAN ([facility]) POLYETHYLENE GLYCOL 3350 142 MG/ML Oral Solution USMAN ([facility]) 24 HR Nicotine 0.292 MG/HR Transdermal Patch USMAN ([facility]) 24 HR Nicotine 0.875 MG/HR Transdermal Patch [Nicoderm C-Q] USMAN ([facility]) 24 HR Nicotine 0.583 MG/HR Transdermal Patch [Nicoderm C-Q] USMAN ([facility]) hydroquinone 40 MG/ML Topical Cream USMAN ([facility]) Hydrocortisone 10 MG/ML Topical Cream USMAN ([facility]) Pimecrolimus 10 MG/ML Topical Cream [Elidel] USMAN ([facility]) doxycycline hyclate 100 MG Oral Tablet USMAN ([facility]) bismuth subsalicylate 17.5 MG/ML Oral Suspension USMAN ([facility]) Bisacodyl 5 MG Delayed Release Oral Tablet [facility]MAN ([facility]) Amlodipine 5 MG Oral Tablet USMAN ([facility]) POLYETHYLENE GLYCOL 3350 142 MG/ML Oral Solution USMAN ([facility]) 24 HR Nicotine 0.292 MG/HR Transdermal Patch USMAN ([facility]) 24 HR Nicotine 0.875 MG/HR Transdermal Patch [Nicoderm C-Q] USMAN ([facility]) 24 HR Nicotine 0.583 MG/HR Transdermal Patch [Nicoderm C-Q] USMAN ([facility]) hydroquinone 40 MG/ML Topical Cream USMAN ([facility]) Hydrocortisone 10 MG/ML Topical Cream USMAN ([facility]) Pimecrolimus 10 MG/ML Topical Cream [Elidel] USMAN ([facility]) doxycycline hyclate 100 MG Oral Tablet USMAN ([facility]) bismuth subsalicylate 17.5 MG/ML Oral Suspension [facility]MAN ([facility]) Bisacodyl 5 MG Delayed Release Oral Tablet [facility]MAN ([facility]) Amlodipine 5 MG Oral Tablet [facility]MAN ([facility])
[2020-08-15] MEDS ORDERED: fentaNYL 100 MCG/2 ML INJECTION (J3010) As Ordered ONE (10:45)
--- NOTE | 2020-08-15 10:58 | ROOR ---
Patient Name: Serene Elias Procedure Date: 08/15/2020 10:43 AM Date of : 1970 Age: 49 Room: [facility] Gender: Female Note Status: Finalized Procedure: Upper Endoscopy + Biopsies Indications: Heartburn, Abdominal bloating, Nausea with vomiting Providers: Zacarias Mejia MD Referring MD: RICHAR DALEY MD Requesting Provider: Medicines: Monitored Anesthesia Care Complications: No immediate complications. Procedure: Pre-Anesthesia Assessment: - The heart rate, respiratory rate, oxygen saturations, blood pressure, adequacy of pulmonary ventilation, and response to care were monitored throughout the procedure. The Endoscope was introduced through the mouth, and advanced to the second part of duodenum. The upper GI endoscopy was accomplished without difficulty. The patient tolerated the procedure well. Findings: The Z-line was regular and was found 35 cm from the incisors. No other significant abnormalities were identified in a careful examination of the stomach. Biopsies were taken with a cold forceps in the gastric antrum for Helicobacter pylori testing. The exam of the duodenum was otherwise normal. Impression: - Z-line regular, 35 cm from the incisors. - Biopsies were taken with a cold forceps for Helicobacter pylori testing. - The examination was otherwise normal. Recommendation: - Patient has a contact number available for emergencies. The signs and symptoms of potential delayed complications were discussed with the patient. Return to normal activities tomorrow. Written discharge instructions were provided to the patient. - High fiber diet. - Discharge patient to home. - Follow an antireflux regimen. - Continue present medications. - Await pathology results. - Telephone GI clinic for pathology results in 1 week. - Return to referring physician. - The findings and recommendations were discussed with the patient. Procedure Code(s): --- Professional --- 25210, Esophagogastroduodenoscopy, flexible, transoral; with biopsy, single or multiple Diagnosis Code(s): --- Professional --- R12, Heartburn R14.0, Abdominal distension (gaseous) R11.2, Nausea with vomiting, unspecified CPT copyright 2019 [employer]. All rights reserved. The codes documented in this report are preliminary and upon shactor helper review may be revised to meet current compliance requirements. Zacarias Mejia MD Zacarias Mejia MD 08/15/2020 10:58:09 AM Electronically signed by Zacarias Mejia MD Number of Addenda: 0 Note Initiated On: 08/15/2020 10:43 AM Estimated Blood Loss: Estimated blood loss: none.
[2020-08-15] MEDS ORDERED: propofoL 200 MG/20 ML VIAL As Ordered ONE (11:09)
[2020-08-15] MEDS ORDERED: LIDOCAINE 2% 100MG/5ML SDV (FOR ANES.) As Ordered ONE (11:09)
[2020-08-15 11:20] VITALS: BP 170/93
== END 2020-08-15 11:23 | disposition home or self-care (01) ==
LOC: M SDC 09:32
PROVIDERS: ATTEND Internal Medicine Gastroenterology
DX: R12 Heartburn (principal); R14.0 Abdominal distension (gaseous); R11.2 Nausea with vomiting, unspecified; I10 Essential (primary) hypertension; K21.9 Gastro-esophageal reflux disease without esophagitis; F43.10 Post-traumatic stress disorder, unspecified; F41.9 Anxiety disorder, unspecified; F32.9 Major depressive disorder, single episode, unspecified; G43.909 Migraine, unspecified, not intractable, without status migrainosus; Z87.891 Personal history of nicotine dependence; Z79.899 Other long term (current) drug therapy
CPT/HCPCS: 43239; 88305; J3010